=== PATIENT | female | born 1965 | race Caucasian/White ===

== ENCOUNTER 2017-05-30 07:49 | Inpatient (IN) ==
--- NOTE | 2017-05-29 15:40 | Discharge Summary ---
<Cathy Morris E - Last Filed: 05/29/17 15:38> Date of Encounter: 05/29/17 - Discharge Diagnosis (1) Arthritis of left knee Priority: Primary Status: Chronic (2) Diastolic congestive heart failure Priority: Secondary Status: Chronic Qualifiers: Congestive heart failure chronicity: unspecified congestive heart failure chronicity Qualified Code(s): I50.30 - Unspecified diastolic (congestive) heart failure (3) Hypertension Priority: Secondary Status: Chronic Qualifiers: Hypertension type: unspecified Qualified Code(s): I10 - Essential (primary ) hypertension (4) Hyperlipidemia Priority: Secondary Status: Chronic Qualifiers: Hyperlipidemia type: unspecified Qualified Code(s): E78.5 - Hyperlipidemia , unspecified (5) COPD (chronic obstructive pulmonary disease) Priority: Secondary Status: Chronic Qualifiers: COPD type: unspecified COPD Qualified Code(s): J44.9 - Chronic obstructive pulmonary disease, unspecified (6) REMBERTO on CPAP Priority: Secondary Status: Chronic (7) Smoking Priority: Secondary Status: Chronic (8) Chronic pain Priority: Secondary Status: Chronic Comments: Patient to continue chronic Percocet for pain as directed by the prescriber of that medication. Qualifiers: Chronic pain type: chronic pain syndrome Qualified Code(s): G89.4 - Chronic pain syndrome (9) BMI 60.0-69.9, adult Priority: Secondary Status: Chronic - Discharge Medications Prescriptions: OxyCODONE/APAP 10/325 [Percocet 10/325 MG] 1 each PO Q6HR PRN #40 tablet PRN Reason: Pain Home Medications: Albuterol Neb [Proventil Neb] 2.5 mg IH Q4H PRN 09/23/16 [History] Albuterol Sulfate [Ventolin Hfa] 2 puff IH Q4H PRN 09/23/16 [History] Furosemide [Lasix] 80 mg PO DAILY 09/23/16 [History] Multivitamin [Multivitamins] 1 each PO DAILY 09/23/16 [History] Naproxen [Naprosyn] 500 mg PO BID PRN 09/23/16 [History] Aspirin Enteric Coated [Aspirin EC] 325 mg PO DAILY #21 tablet. 05/29/17 [Rx] Cholecalciferol (D-3) [Vitamin D] 1,000 unit PO DAILY 05/30/17 [History] Fluticasone/Vilanterol [Breo Ellipta 100-25 Mcg INH] 1 each IH DAILY 05/30/17 [ History] Loratadine [Allergy Relief] 10 mg PO DAILY PRN 05/30/17 [History] OxyCODONE/APAP 10/325 [Percocet 10/325 MG] 1 tab PO TID PRN 05/30/17 [History] Potassium Chloride 20 meq PO DAILY 05/30/17 [History] OxyCODONE/APAP 10/325 [Percocet 10/325 MG] 1 each PO Q6HR PRN #40 tablet [Rx] Allergies/Adverse Reactions: Allergies No Known Allergies Allergy (Verified 05/30/17 13:04) Primary care physician: Mariam Kumar - Patient Status Disposition: Transfer Inpatient Rehab Fac Condition: Good - Discharge Instructions Follow Up With: Mariam Kumar MD [Primary Care Provider] - Additional Instructions: Discharge Instructions: Total Knee Replacement Please call [facility] ([phone]), your Primary Care Physician, or report to the Emergency Room if you have any of the following symptoms: Nausea, vomiting, fever greater that 101.5, swelling, chest pain, shortness of breath, increased pain/redness/drainage/odor for your incision site, numbness/ tingling, or any other concerning symptoms. ACTIVITY:Weight-bearing as tolerated. You may progress off support (crutches or walker) as tolerated. NO knee motion, immobilizer at all times. MEDICATIONS: Upon discharge resume your home medications. Take all the medications as prescribed. Take a stool softener if taking narcotic pain medications. Stool softeners are only effective if you drink enough fluids. Drink 6-8 glass of water or fluids a day, unless this is not allowed for another health problem. Despite using stool softeners, if you haven't had a bowel movement in 3 days, please switch to a gentle laxative. Gentle laxatives are sold over the counter. You should have a bowel movement within 24 hours, if not call the office. You will be discharged from the hospital with a prescription for pain medication. You are encouraged to decrease the use of narcotic pain medication as tolerated. Should you require a refill, please call the office. [facility] prescribes narcotic pain medication for only 4-6 weeks after surgery. If you require pain medication beyond this time period, you may be referred to your Primary Care Physician or to the Pain Clinic for further evaluation. Plan ahead for refills on pain medication as many narcotics either need to be picked up at the office or mailed. It is best to call 48-72 hours in advance of needing a prescription refill so you don't run out of medication. To help control the post-operative pain, you may take NSAIDs (Aleve,Advil, Motrin, Ibuprofen, Naprosyn) or Tylenol as prescribed on the bottle in addition to the pain medication. ANTICOAGULATION (blood thinners): Continue your Aspirin, Lovenox or Coumadin as prescribed to help prevent a blood clot in the leg or in the lungs. As long as your incision remains dry and you tolerate the NSAIDs (Aleve, Advil, Motrin, ibuprofen, naprosyn), it is OK to use the NSAIDS while you are taking your anticoagulation medication. Should your incision start to drain, stop the NSAID and contact our office. Common symptoms of blood clot in the legs include: localized pain, swelling, calf tenderness, redness or discoloration of the skin. Blood clot in the lung symptoms include: shortness of breath, rapid pulse, sweating, and chest pain that worsens with deep breathing, coughing up blood, lightheadedness, feelings of anxiety. If you experience any of these symptoms notify your physician immediately, go to the emergency room, or if having trouble breathing, call 911. WOUND CARE: Leave the dressing on for 7 to 10days. You may change the dressing if it becomes saturated greater than 50%. Do not get the dressing wet at anytime. Wash your hands with antibacterial soap, rinse and dry prior to any wound care. If you have orin the visiting nurse or rehab facility can remove the stapes 10-14 days after surgery and place steri-strips across the wound. Leave the steri-strips in place until they fall off on their won. You may let water from the shower run on top of the steri-strips. If you do not have a visiting nurse or rehab facility, you will need to return to the office at 10-14 days for the orin to be removed. If you have itching or redness around the dressing call the office. FOLLOW-UP: Please follow up with your surgeon in the orthopedic clinic in 4 weeks from the day of surgery. If you have orin that need to be removed, you will need to come back to the office in 10-14 days from the day of surgery. - Hospital Course Hospital course: Ms. Hansen is a 52 year old female - Time Spent with Patient Total time spent providing and/or coordinating discharge services: - VTE Documentation of Mechanical Device: Venous foot pump, device <Sneha Hooper - Last Filed: 05/31/17 13:05> Date of Encounter: 05/31/17 - Discharge Diagnosis (1) Status post total knee replacement, left Priority: Primary Status: Acute Comments: No knee ROM, stay in knee immobilizer. No CPM. WBAT. Labs on day of discharge: Labs from last 24 hours 05/31/17 05/31/17 06:10 06:10 Hgb 9.9 L D Hct 31.7 L Sodium 138 Potassium 4.1 Chloride 102 Carbon Dioxide 30 H BUN 16 Creatinine 0.80 Est GFR ( Amer) > 60 Est GFR (Non-Af Amer) > 60 BUN/Creatinine Ratio 20 Glucose 118 H Calculated Osmolality 288 Calcium 9.1 - Impressions ITS Impressions Knee X-Ray 05/30/17 01:00 IMPRESSION: Total knee arthropasty without acute hardware complication. D/ / Sebastian Luo MD / Sebastian Lou MD Interpreting Provider: Sebastian Luo MD Date of admission: 05/30/17 12:57 Primary care physician: Mariam Kumar Consults: 05/30/17 12:57 Consult to Occupational Therapy [CONS] Routine Comment: Evaluate, develop and implement POC Reason for Consult: post knee surgery Consult to Orthopedic Navigator [CONS] [CONS] Routine Consult to Physical Therapy [CONS] Routine Comment: Evaluate, develop and impliment POC Reason for Consult: - No Knee ROM until incision heals; WBAT - post knee surgery Consult to Rayon Tester [CONS] Routine Reason for SW Consult: post op joint replacement RT Post Op Consult [CONS] Routine - Hospital Course Hospital course: Ms. Hansen is a 52 year old female - Time Spent with Patient Total time spent providing and/or coordinating discharge services: <Lukas Mcgowan - Last Filed: 06/02/17 15:06> Date of Encounter: 06/02/17 Time of Encounter: 15:06 - Discharge Diagnosis (1) COPD, moderate Priority: Secondary Status: Chronic (2) REMBERTO treated with BiPAP Priority: Secondary Status: Chronic (3) Morbid obesity Priority: Secondary Status: Chronic (4) Umbilical hernia, incarcerated Priority: Secondary Status: Chronic (5) Arthritis of left knee Priority: Primary Status: Chronic (6) Diastolic congestive heart failure Priority: Secondary Status: Chronic Qualifiers: Congestive heart failure chronicity: unspecified congestive heart failure chronicity Qualified Code(s): I50.30 - Unspecified diastolic (congestive) heart failure (7) Hypertension Priority: Secondary Status: Chronic Qualifiers: Hypertension type: unspecified Qualified Code(s): I10 - Essential (primary ) hypertension (8) Hyperlipidemia Priority: Secondary Status: Chronic Qualifiers: Hyperlipidemia type: unspecified Qualified Code(s): E78.5 - Hyperlipidemia , unspecified (9) COPD (chronic obstructive pulmonary disease) Priority: Secondary Status: Chronic Qualifiers: COPD type: unspecified COPD Qualified Code(s): J44.9 - Chronic obstructive pulmonary disease, unspecified (10) REMBERTO on CPAP Priority: Secondary Status: Chronic (11) Smoking Priority: Secondary Status: Chronic (12) Chronic pain Priority: Secondary Status: Chronic Qualifiers: Chronic pain type: chronic pain syndrome Qualified Code(s): G89.4 - Chronic pain syndrome (13) Status post total left knee replacement Priority: Primary Status: Acute (14) Acute blood loss anemia Priority: Primary Status: Acute (15) Morbid obesity with BMI of 70 and over, adult Priority: Secondary Status: Chronic Primary care physician: Mariam Kumar - Patient Status Functional capacity at discharge: uses cane/walker Overall status at discharge: patient is back to baseline - Hospital Course Hospital course: Ms. Hansen is a 52 year old female Status post left total knee replacement. Patient had some problems with urination and difficulty getting up to urinate wanted a [place] which was refused due to risk of infection. Otherwise did well see them by physical therapy prescription in a brace knee locked out straight to allow for soft tissue healing. Patient somewhat weak discharged on aspirin for DVT prophylaxis. - Time Spent with Patient Total time spent providing and/or coordinating discharge services:
--- NOTE | 2017-05-29 15:44 | Physician Discharge Referral ---
ExtendedCare Referral Info Transfer To: [facility] Provider in Charge: Dr. Lukas Mcgowan Institutional Level of Care: Skilled - Diagnosis (1) Status post total left knee replacement Priority: Primary Status: Acute (2) Arthritis of left knee Priority: Primary Status: Chronic (3) Diastolic congestive heart failure Priority: Secondary Status: Chronic (4) Hypertension Priority: Secondary Status: Chronic (5) Hyperlipidemia Priority: Secondary Status: Chronic (6) COPD (chronic obstructive pulmonary disease) Priority: Secondary Status: Chronic (7) REMBERTO on CPAP Priority: Secondary Status: Chronic (8) Smoking Priority: Secondary Status: Chronic (9) Chronic pain Priority: Secondary Status: Chronic (10) BMI 60.0-69.9, adult Priority: Secondary Status: Chronic Expected Duration of Placement: <30 days Prognosis: Good Aware of Diagnosis: Patient Aware of Prognosis: Patient - Transfer Medications Prescriptions: Aspirin Enteric Coated [Aspirin EC] 325 mg PO DAILY #21 tablet.dr Escobar Medications: Potassium Chloride [Klor-Con Sprinkle] 10 meq PO QAM 11/03/15 [History] Albuterol Neb [Proventil Neb] 2.5 mg IH Q4H PRN 09/23/16 [History] Albuterol Sulfate [Ventolin Hfa] 2 puff IH Q4H PRN 09/23/16 [History] Budesonide/Formoterol 160/4.5 [Symbicort 160/4.5] 2 puff IH BIDR 09/23/16 [ History] Cholecalciferol (Vitamin D3) [Vitamin D3] 50,000 unit PO MO 09/23/16 [History] Furosemide [Lasix] 80 mg PO DAILY 09/23/16 [History] Guaifenesin [Mucinex] 600 mg PO BID PRN 09/23/16 [History] Multivitamin [Multivitamins] 1 each PO DAILY 09/23/16 [History] Naproxen [Naprosyn] 500 mg PO BID PRN 09/23/16 [History] traMADol [Ultram] 50 mg PO Q6H PRN 09/23/16 [History] OxyCODONE/APAP 5/325 [Percocet 5/325 MG] 1 each PO Q4HR PRN #24 tab 09/24/16 [Rx ] Aspirin Enteric Coated [Aspirin EC] 325 mg PO DAILY #21 tablet. 05/29/17 [Rx] Allergies/Adverse Reactions: Allergies No Known Allergies Allergy (Verified 09/23/16 12:23) - Respiratory Orders Smoking Cessation: Smoking cessation has been advised. For more information, call the [place] Tobacco Quit Line at 9-348-UHVV-NOW. - Ancillary Orders May use pressure relief devices daily prn, May go on LENARD w/family/respon republican w /meds at nurse discretion PRN, May consult with Dentist, Checker/Stocker, Cost Estimating Engineer PRN - Mobility Orders Chair, Ambulate (walker) - Rehabiliation Orders Rehab Potential: Good Rehab Orders: ROM Exercises, Evaluation for Physical Therapy, Evaluation for Occupational Therapy Other: Total Knee replacement Precautions x 6 weeks Apply cold therapy wrap 3-6x/day for 20 minutes at a time. Encourage ambulation throughout the day and incentive spirometer 10x/hour. Elevate affected extremity above heart as tolerated. Brace: Wear knee immobilizer at night x 2 weeks. - Treatments Skin tear care topically daily PRN per policy List/Other: Opsite placed. Keep dressing intact until first follow up appointment. If > 50% saturated, notify office, remove dressing and place appropriate dressing back in place. Dressing is water resistant, not water-proof. OK to shower, but do not get dressing wet. - Diet Orders Regular CERTIFICATION: I certify that the transfer of the above named patient to an Extended Care Facility is necessary for the continuing treatment of the diagnosis listed. The above information is true and accurate reflection of patient's current condition. Confidential - Redisclosure prohibited without a patient's written consent.
[2017-05-30] MEDS ORDERED: Albuterol 2.5 MG/3 ML NEBULIZER IH ONE (08:07)
[2017-05-30] MEDS ORDERED: CeFAZolin Pre 3,000 MG/100 ML 3,000 MG/100 ML BAG IVPB ONE (08:07)
[2017-05-30] MEDS ORDERED: Lidocaine -MPF 1% 2 ML VIAL ID ONE (08:07)
[2017-05-30] MEDS ORDERED: Albuterol 2.5 MG/3 ML NEBULIZER ONE (08:10)
[2017-05-30] MEDS ORDERED: Ringers Solution, Lactated 1,000 ML IVC SCH (08:15)
[2017-05-30] MEDS ORDERED: *HR* Propofol 200 MG/20 ML VIAL IVP ONE ×2 (08:30→10:07)
[2017-05-30] MEDS ORDERED: *HR* Midazolam HCl 2 MG/2 ML VIAL ONE (08:30)
[2017-05-30] MEDS ORDERED: *HR* FentaNYL (PF) 100 MCG/2 ML VIAL ONE (08:30)
[2017-05-30] MEDS ORDERED: Ondansetron 4 MG/2 ML VIAL ONE (08:31)
[2017-05-30] MEDS ORDERED: Lidocaine -MPF 2% 2 ML VIAL ONE ×2 (08:31→11:16)
[2017-05-30] MEDS ORDERED: Dexamethasone 4 MG/ML VIAL ONE (08:31)
--- NOTE | 2017-05-30 08:31 | History & Physical Report ---
Date of Encounter: 05/30/17 Time of Encounter: 08:30 24 Hour HP Update - Instructions Instructions: If the History and Physical is less than 30 days old and was completed prior to A.M. admission and or procedure and has NOT been updated on calendar day of procedure please complete this update prior to performing procedure. - Update Patient reports changes in Medical Condition: No Changes in examination, assessment, or condition: No Changes in Medication: No Preop tests/diagnostics Reviewed: Yes Surgery Remains Indicated: Yes Consent for Planned Operative Procedure(s) Verified: Yes - Pre-Operative Checklist Preoperative Checklist Indicated: No Prophylactic Antibiotic Ordered: Yes Is VTE Prophylaxis Indicated?: Yes
[2017-05-30] MEDS ORDERED: Vancomycin 2,000 MG in D5% in Water 250 ML IVPB ONE (08:47)
[2017-05-30] MEDS ORDERED: D10 IVPB ONE (09:00)
[2017-05-30] MEDS ORDERED: VANCOMYCIN IVPB ONE (09:00)
[2017-05-30] MEDS ORDERED: WATER IVPB ONE (09:00)
--- NOTE | 2017-05-30 09:00 | Anesthesia Evaluation PreOp ---
Date of Encounter: 05/30/17 Time of Encounter: 08:54 - Past History Planned Operation: Left Total Knee Arthroplasty Cardiac History: CHF Pulmonary History: Former smoker (quit 02/14/2016, smoked for 30+ years), COPD, REMBERTO Dx (uses bipap) INSTRUMENT INSPECTOR History: Denies Any Significant HX Other Medical History: Other (obesity BMI=69.9) Anesthesia History: No Prior Anesthetic Complications, Past Anesthesia Alcohol Use: none Drug use: none Medications and Allergies Potassium Chloride [Klor-Con Sprinkle] 10 meq PO QAM 11/03/15 [History] Albuterol Neb [Proventil Neb] 2.5 mg IH Q4H PRN 09/23/16 [History] Albuterol Sulfate [Ventolin Hfa] 2 puff IH Q4H PRN 09/23/16 [History] Budesonide/Formoterol 160/4.5 [Symbicort 160/4.5] 2 puff IH BIDR 09/23/16 [ History] Cholecalciferol (Vitamin D3) [Vitamin D3] 50,000 unit PO MO 09/23/16 [History] Furosemide [Lasix] 80 mg PO DAILY 09/23/16 [History] Guaifenesin [Mucinex] 600 mg PO BID PRN 09/23/16 [History] Multivitamin [Multivitamins] 1 each PO DAILY 09/23/16 [History] Naproxen [Naprosyn] 500 mg PO BID PRN 09/23/16 [History] traMADol [Ultram] 50 mg PO Q6H PRN 09/23/16 [History] OxyCODONE/APAP 5/325 [Percocet 5/325 MG] 1 each PO Q4HR PRN #24 tab 09/24/16 [Rx ] Aspirin Enteric Coated [Aspirin EC] 325 mg PO DAILY #21 tablet. 05/29/17 [Rx] Allergies No Known Allergies Allergy (Verified 09/23/16 12:23) - Meds/Allergy Pre-op Review Medications Reviewed: Yes Allergies Reviewed: Yes Beta Blockers on Current Med List: No Anesthesia Results - Labs Laboratory Tests 05/25/17 05/25/17 05/25/17 10:05 10:05 10:05 WBC 7.0 Hgb 13.0 Hct 42.7 Plt Count 324 PT 11.6 INR 1.1 APTT 29.8 Sodium 140 Potassium 4.0 BUN 13 Creatinine 0.71 - Imaging EKG: report reviewed (11/03/2015 ST, low QRS voltage in precordial leads) Additional studies: 09/14/2016 Stress Echo appropriate increase in LVEF with stress definity was used to enhance endocardial border pharmacologic ECG is nondiagnostic for ischemia baseline ECG demonstrates NSR with nonspecific ST findings Anesthesia Exam O2 Sat Height 1.63 m Height 1.63 m Height 1.63 m Weight 184.612 kg Weight 184.612 kg Weight 184.612 kg O2 Sat by Pulse Oximetry 100 Vital Signs Temp Pulse Resp BP Pulse Ox 98.1 F 91 18 134/81 100 05/30/17 08:31 05/30/17 08:31 05/30/17 08:31 05/30/17 08:31 05/30/17 08:31 Height: 5'4'' Weight: 407 lbs NPO (# of Hours): 8 Pain Scale: 8 (left knee) Pain Scale Used: Numeric (1 - 10) - HEENT Pupil (Motor): EOMI Mallampati: II Teeth: Normal (has 7 lower teeth), Missing Oral Opening: Greater than 3 - INSTRUMENT INSPECTOR LOC: Oriented INSTRUMENT INSPECTOR Motor: Normal RUE, Normal LUE, Normal RLE, Normal LLE, Normal Face INSTRUMENT INSPECTOR Sensory: Normal: RUE, LUE, RLE, LLE, Face - Cardiac Rhythm: Regular Murmur: None - Pulmonary Breath Sounds: bilateral Clear Respiratory Effort: Symmetrical Anesthesia Assess/Plan ASA Score: 3 Modified Adams Scale for Level of Consciousness: Cooperative, oriented, and tranquil Anesthetic Plan: General, Regional Monitoring Plan: Standard Monitors Recovery Plan: PACU
[2017-05-30] MEDS ORDERED: ROPIVACAINE HCL/PF 0.5% 30 ML VIAL ONE (09:20)
[2017-05-30] MEDS ORDERED: Bupivacaine/Clonidine Syringe 1 EACH SYRINGE ONE (09:20)
[2017-05-30] MEDS ORDERED: *HR* Morphine 2 MG/ML SYRINGE IVP PRN (09:26)
[2017-05-30] MEDS ORDERED: Ondansetron 4 MG/2 ML VIAL IVP ONE (09:26)
[2017-05-30] MEDS ORDERED: *HR* Labetalol 20 MG/4 ML SYRINGE IVP PRN (09:26)
[2017-05-30] MEDS ORDERED: Dexamethasone 4 MG/ML VIAL IVP ONE (09:26)
[2017-05-30] MEDS ORDERED: *HR* HYDROmorphone (PF) 1 MG/ML SYRINGE IVP PRN (09:26)
[2017-05-30] MEDS ORDERED: *HR* Succinylcholine 200 MG/10 ML VIAL IVP ONE (09:32)
[2017-05-30] MEDS ORDERED: Lidocaine -MPF 4% 5 ML AMPUL ONE (09:32)
--- NOTE | 2017-05-30 09:59 | Anesthesia Procedures ---
Date of Encounter: 05/30/17 Time of Encounter: 09:39 Procedures: Anesthesia - Nerve Block Procedure Date: 05/30/17 Time: 09:39 Surgical Procedure: left knee total Checklist: Correct Patient Identifier, Correct procedure, History checked Correct side: Left Monitor Applied: EKG, BP, Pulse Oximetry Supplemental Oxygen via Nasal Cannula (L/min): 2 Sedation: Versed (mg): 2 Indication: Post Op Analgesia Pre-op Neuro Deficits: Yes Block Type: Femoral, Other (ipack) Catheter placed: No Sterile Technique: Yes Ultrasound used: Yes Anatomy identified: Yes Visual spread of Local: Yes Neuro Stimulation: Yes Nerve Stimulator Range: 0.2 - 0.4 mA Blood on Needle Aspiration: No Smooth Injection of Local: Yes Pain with Injection of Local: No Prep: Chlorhexadine Needle: 22 x 50 mm Stimuplex Local: 0.25% Bupivicaine w/Clonidine 20 mcg/cc (20ml ), Ropivacaine (30ml 0.5) Volume (cc): 50 Number of Attempts: 1 Complications: None/effective block Vitals: vss though out, block per request
[2017-05-30] MEDS ORDERED: *HR* Phenylephrine 10 MG/ML VIAL ONE (10:27)
[2017-05-30] MEDS ORDERED: *HR* Morphine 10 MG/ML VIAL ONE (10:54)
[2017-05-30] MEDS ORDERED: Ketorolac 30 MG/ML VIAL ONE (10:58)
--- NOTE | 2017-05-30 11:06 | Orthopedic Operative Note ---
Date of procedure: 05/30/17 Pre-op diagnosis: Left knee arthritis Post-op diagnosis: same Procedure: Procedure: Left Total knee replacement Estimated blood loss: 400 cc Hardware: Metal and polyethylene replacement. Arthrex Femur: 5 Tibia: 5, 14 x 50 stem PS insert: 11 Patella: 34 Exam Under anesthesia: Full flexion and extension no instability Procedural Notes: Grade 4 arthritic changes medial compartment grade 3 arthritic changes patellofemoral joint. Operative procedure: The patient was brought to the operating room and placed on the operating room table. After general anesthesia was administered the operative knee was examined. Findings were noted in the exam under anesthesia. The operative extremity was prepped and draped in sterile surgical fashion. The patient received IV antibiotics prior to skin incision. A standard midline incision was made centered over the patella. The incision was made through the skin and subcutaneous tissue. A medial parapatellar tendon approach was performed. Care was taken to preserve tissue along the medial aspect of the patella. And to protect the patella tendon. The deep MCL was released off the medial tibia. The infra patella fat pad was excised. Knee was brought into flexion. Patient noted to have grade 4 changes medial compartment and grade 3 changes patellofemoral joint. The entry hole was made for the intramedullary femoral guide. The guide was seated in 6 degrees of valgus. Anterior cut was made followed by the distal cut. The ACL the PCL the medial and the lateral menisci were excised. The tibia was subluxed forward. The entry hole was made for the intramedullary tibial guide. Guide was seated to resect 2 mm off the more abnormal side. The knee was brought into flexion the distal femur was sized to a 5. The femoral guide was seated, the anterior cut was made followed by the posterior condylar cut, followed by the chamfer cuts. The finishing guide was seated the box cut was made and the lug holes were drilled. The tibia was sized to a 5, the tibial tray was seated and prepared with the large drill followed by the fin cutter followed by reaming to 14 x 50. Trial reduction revealed full extension no varus valgus instability with the appropriate 11 PS Ginny. The patella was everted and cut was made at the level of the insertion of the quadriceps and patella tendon. The patella was sized 34 the guide was seated and the lug holes are drilled. Trial reduction revealed excellent patella tracking. All trial components were removed all bony surfaces were irrigated. The tibia was assembled and was cemented first followed by the femur. The 11 PS Ginny was seated and the knee was brought into full extension. The patella was cemented and held in place with the patellar holding clamp. After the cement had hardened, the knee sat for 2 minutes with a Betadine saline solution. The knee was then irrigated out with 2 L of pulse irrigation. The knee was closed by the PA. The extensor mechanism was closed with #2 FiberWire suture and #2 PDS suture. The subcutaneous tissue was then irrigated and closed deep with #1 PDS suture superficially with 0 PDS suture and skin was closed with skin orin. The patient was then placed in a sterile dressing and a postoperative brace extubated and transferred to recovery room in stable condition. Anesthesia: SLAVA Surgeon: Lukas Mcgowan Telecommunication Operator: Cathy Morris Condition: stable Disposition: PACU
[2017-05-30] MEDS ORDERED: Acetaminophen IV 1,000 MG/100 ML INFUS..BTL ONE (12:30)
[2017-05-30] MEDS ORDERED: Acetaminophen IV 1,000 MG/100 ML INFUS..BTL IVPB ONE (12:31)
[2017-05-30] MEDS ORDERED: Ketorolac 30 MG/ML VIAL IVP ONE (12:32)
[2017-05-30 12:37] LABS: Hematocrit 37.4 % (35.3-44.9); Hemoglobin 11.6 g/dL (11.5-15.4)
--- NOTE | 2017-05-30 12:47 | Anesthesia Evaluation Post Op ---
Date of Encounter: 05/30/17 Time of Encounter: 12:46 - Vital Signs Vital Signs: Vital Signs/O2 Sat, Most Current Temp Pulse Resp BP Pulse Ox 98.1 F 74 18 99/54 94 05/30/17 12:27 05/30/17 12:37 05/30/17 12:37 05/30/17 12:27 05/30/17 12:37 - Lungs Lungs: Clear Ascult./Percussion - Airway Airway: Non-obstructed - Cardiovascular Regular Rate - Mental Status Mental Status: Alert & Oriented, Answers Appropriately - Pain Pain Scale: 6 Pain Scale used: Numeric (1 - 10) - Nausea Vomiting Nausea Vomiting: Not Present - Hydration Hydration: NPO, Has not voided - Discharge PostOp Status: Transfer Patient to floor
[2017-05-30] MEDS ORDERED: Sennosides 8.6 MG TABLET PO PRN (12:57)
[2017-05-30] MEDS ORDERED: Ondansetron 4 MG/2 ML VIAL IVP PRN (12:57)
[2017-05-30] MEDS ORDERED: Temazepam 15 MG CAPSULE PO PRN (12:57)
[2017-05-30] MEDS ORDERED: Albuterol 2.5 MG/3 ML NEBULIZER IH PRN (12:57)
[2017-05-30] MEDS ORDERED: MOM Conc 10 ML UD.LIQ PO PRN (12:57)
[2017-05-30] MEDS ORDERED: Loratadine 10 MG TABLET PO PRN (12:57)
[2017-05-30] MEDS ORDERED: *HR* OxyCODONE Immed Rel 5 MG TABLET PO PRN (12:57)
[2017-05-30] MEDS ORDERED: Naloxone 0.4 MG/ML INJ IVP PRN (12:57)
[2017-05-30] MEDS: *HR* OxyCODONE Immed Rel 5 MG TABLET PO PRN (14:23)
[2017-05-30] MEDS: Ringers Solution, Lactated 1,000 ML IVC SCH (14:23)
[2017-05-30] MEDS: Budesonide/Formoterol 160/4.5 MDI IH SCH ×2 (14:52→22:35)
[2017-05-30] MEDS: ceFAZolin 3,000 MG in D5% in Water 100 ML IVPB SCH ×2 (15:29→23:55)
[2017-05-30] MEDS: *HR* Enoxaparin 30 MG/0.3 ML SYRINGE SQ SCH (17:19)
[2017-05-30] MEDS ORDERED: *HR* Enoxaparin 30 MG/0.3 ML SYRINGE SQ SCH (18:00)
[2017-05-30] MEDS: *HR* HYDROmorphone (PF) 1 MG/ML SYRINGE IVP PRN (20:02)
[2017-05-31] MEDS: *HR* HYDROmorphone (PF) 1 MG/ML SYRINGE IVP PRN (04:07)
[2017-05-31] MEDS: Ringers Solution, Lactated 1,000 ML IVC SCH (04:34)
[2017-05-31] MEDS: *HR* Enoxaparin 30 MG/0.3 ML SYRINGE SQ SCH ×2 (05:19→16:38)
--- NOTE | 2017-05-31 06:48 | Orthopedics Progress Note ---
Date of Encounter: 05/31/17 Time of Encounter: 06:48 - Assessment and Plan (1) COPD, moderate Current Visit: No Status: Chronic (2) REMBERTO treated with BiPAP Current Visit: No Status: Chronic (3) Morbid obesity Current Visit: No Status: Chronic (4) Umbilical hernia, incarcerated Current Visit: No Status: Chronic (5) Arthritis of left knee Current Visit: Yes Status: Chronic (6) Diastolic congestive heart failure Current Visit: Yes Status: Chronic Qualifiers: Congestive heart failure chronicity: unspecified congestive heart failure chronicity Qualified Code(s): I50.30 - Unspecified diastolic (congestive) heart failure (7) Hypertension Current Visit: Yes Status: Chronic Qualifiers: Hypertension type: unspecified Qualified Code(s): I10 - Essential (primary ) hypertension (8) Hyperlipidemia Current Visit: Yes Status: Chronic Qualifiers: Hyperlipidemia type: unspecified Qualified Code(s): E78.5 - Hyperlipidemia , unspecified (9) COPD (chronic obstructive pulmonary disease) Current Visit: Yes Status: Chronic Qualifiers: COPD type: unspecified COPD Qualified Code(s): J44.9 - Chronic obstructive pulmonary disease, unspecified (10) REMBERTO on CPAP Current Visit: Yes Status: Chronic (11) Smoking Current Visit: Yes Status: Chronic (12) Chronic pain Current Visit: Yes Status: Chronic Qualifiers: Chronic pain type: chronic pain syndrome Qualified Code(s): G89.4 - Chronic pain syndrome (13) BMI 60.0-69.9, adult Current Visit: Yes Status: Chronic (14) Status post total left knee replacement Current Visit: Yes Status: Acute Subjective Interval history: Patient was seen this morning doing well without complaints. Afebrile vital signs stable. Operative extremity: Neurovascularly intact Dressing bloody dressing changed today Calves nontender Assessment and plan: Continue with postoperative care Postop hematocrit 37 no knee motion to allow incision to heal Objective Vital signs: Vital Signs Temp Pulse Resp BP Pulse Ox 05/31/17 06:39 98.4 F 64 20 157/68 93 05/31/17 03:55 98.2 F 98 18 123/69 89 05/31/17 00:03 98.4 F 95 18 127/72 92 05/30/17 20:19 98.3 F 92 18 138/80 90 05/30/17 16:05 98.5 F 83 16 163/75 95 05/30/17 15:20 98.2 F 81 16 158/68 97 05/30/17 14:19 98.0 F 81 16 125/69 95 05/30/17 13:35 97.8 F 79 16 131/68 95 05/30/17 13:09 97.6 F 74 15 118/72 96 05/30/17 12:47 98.1 F 79 18 117/64 96 05/30/17 12:37 74 18 94 05/30/17 12:27 98.1 F 78 20 99/54 93 05/30/17 12:17 82 18 110/66 95 05/30/17 12:07 76 18 96/53 92 05/30/17 11:57 98.0 F 87 14 108/64 99 05/30/17 09:56 77 18 116/63 96 05/30/17 09:32 87 16 171/82 94 05/30/17 08:31 98.1 F 91 18 134/81 100 Intake and Output 05/30/17 05/30/17 05/31/17 15:59 23:59 07:59 Intake Total 420 / 420 1100 / 1100 Output Total 400 / 400 Balance -400 / -400 420 / 420 1100 / 1100 Intake: IV Fluids 100 / 100 1100 / 1100 Lactated Ringers 1,000 ML 1000 / 1000 @ 75 mls/hr IVC .[id number] GINNA Rx#:[id number] Ancef 3,000 MG In 100 / 100 100 / 100 Dextrose 5% 100 ML @ 200 mls/hr IVPB Q8HR GINNA Rx#: [id number] Oral 320 / 320 Output: Estimated Blood Loss 400 / 400 Other: Meal Dinner Percent of Meal Consumed 100% # Voids 1 Weight 184.612 kg 189.3 kg Patient Weight 05/31/17 23:59 Weight 189.3 kg - Labs CBC & BMP: 05/30/17 12:23 - VTE Documentation of Mechanical Device: Venous foot pump, device Consult Discharge Plan - Plan Referrals: Mariam Kumar MD [Primary Care Provider] -
[2017-05-31 06:49] LABS: Hematocrit 31.7 % (35.3-44.9)
[2017-05-31 06:50] LABS: Hemoglobin 9.9 g/dL (11.5-15.4)
[2017-05-31 07:06] LABS: BUN/Creatinine Ratio 20 (6-26); Blood Urea Nitrogen 16 mg/dL (7-20); Calcium 9.1 mg/dL (8.6-10.8); Carbon Dioxide 30 mEq/L (19-29); Chloride 102 mEq/L (98-109); Glucose 118 mg/dL (70-99); Osmolality,Calculated 288 (280-300); Potassium 4.1 mEq/L (3.5-4.5); Sodium 138 mEq/L (136-145); eGFR For African Americans > 60 (> 60); eGFR For Non-African Americans > 60 (> 60)
[2017-05-31] MEDS: Budesonide/Formoterol 160/4.5 MDI IH SCH ×2 (08:22→21:51)
[2017-05-31] MEDS: Multivit/Ca/Min/Fe/FA 1 TAB TABLET PO SCH (08:23)
[2017-05-31] MEDS: *HR* OxyCODONE Immed Rel 5 MG TABLET PO PRN ×4 (08:24→22:58)
[2017-05-31] MEDS: Cholecalciferol (D-3) 1,000 UNIT TABLET PO SCH (08:24)
[2017-05-31] MEDS: Furosemide 40 MG TABLET PO SCH ×2 (08:24→08:26)
--- NOTE | 2017-05-31 13:05 | Event Note ---
Date of Encounter: 05/31/17 Time of Encounter: 13:01 PCR - POD#1 Left TKR Patient seen at bedside, doing well. Pain controlled. All questions and concerns addressed. Patient educated on post-operative restrictions and care. Addressed: NO KNEE ROM, NO CPM. Until incision heals. D/C plan: ECF - Percocet 10/325 mg TID - Need RX for ECF
[2017-06-01] MEDS: *HR* OxyCODONE Immed Rel 5 MG TABLET PO PRN ×2 (03:52→11:42)
[2017-06-01 05:25] LABS: Hemoglobin 9.2 g/dL (11.5-15.4)
[2017-06-01 05:37] LABS: BUN/Creatinine Ratio 20 (6-26); Blood Urea Nitrogen 14 mg/dL (7-20); Calcium 8.9 mg/dL (8.6-10.8); Carbon Dioxide 30 mEq/L (19-29); Chloride 103 mEq/L (98-109); Glucose 136 mg/dL (70-99); Osmolality,Calculated 291 (280-300); Potassium 3.8 mEq/L (3.5-4.5); Sodium 139 mEq/L (136-145); eGFR For African Americans > 60 (> 60); eGFR For Non-African Americans > 60 (> 60)
[2017-06-01] MEDS: *HR* Enoxaparin 30 MG/0.3 ML SYRINGE SQ SCH (05:59)
[2017-06-01] MEDS: Budesonide/Formoterol 160/4.5 MDI IH SCH (08:21)
[2017-06-01] MEDS: Multivit/Ca/Min/Fe/FA 1 TAB TABLET PO SCH (09:41)
[2017-06-01] MEDS: Cholecalciferol (D-3) 1,000 UNIT TABLET PO SCH (09:41)
[2017-06-01] MEDS: Furosemide 40 MG TABLET PO SCH (09:42)
--- NOTE | 2017-06-01 09:53 | Orthopedics Progress Note ---
Date of Encounter: 06/01/17 Time of Encounter: 09:52 - Assessment and Plan (1) COPD, moderate Current Visit: No Status: Chronic (2) REMBERTO treated with BiPAP Current Visit: No Status: Chronic (3) Morbid obesity Current Visit: No Status: Chronic (4) Umbilical hernia, incarcerated Current Visit: No Status: Chronic (5) Arthritis of left knee Current Visit: Yes Status: Chronic (6) Diastolic congestive heart failure Current Visit: Yes Status: Chronic Qualifiers: Congestive heart failure chronicity: unspecified congestive heart failure chronicity Qualified Code(s): I50.30 - Unspecified diastolic (congestive) heart failure (7) Hypertension Current Visit: Yes Status: Chronic Qualifiers: Hypertension type: unspecified Qualified Code(s): I10 - Essential (primary ) hypertension (8) Hyperlipidemia Current Visit: Yes Status: Chronic Qualifiers: Hyperlipidemia type: unspecified Qualified Code(s): E78.5 - Hyperlipidemia , unspecified (9) COPD (chronic obstructive pulmonary disease) Current Visit: Yes Status: Chronic Qualifiers: COPD type: unspecified COPD Qualified Code(s): J44.9 - Chronic obstructive pulmonary disease, unspecified (10) REMBERTO on CPAP Current Visit: Yes Status: Chronic (11) Smoking Current Visit: Yes Status: Chronic (12) Chronic pain Current Visit: Yes Status: Chronic Qualifiers: Chronic pain type: chronic pain syndrome Qualified Code(s): G89.4 - Chronic pain syndrome (13) Status post total left knee replacement Current Visit: Yes Status: Acute (14) Acute blood loss anemia Current Visit: Yes Status: Acute (15) Morbid obesity with BMI of 70 and over, adult Current Visit: Yes Status: Chronic Subjective Interval history: Patient was seen this morning doing well without complaints. Afebrile vital signs stable. Operative extremity: Neurovascularly intact Dressing bloody dressing changed today Calves nontender Assessment and plan: Continue with postoperative care Asymptomatic acute blood loss anemia Objective Vital signs: Vital Signs Temp Pulse Resp BP Pulse Ox 06/01/17 06:44 99.5 F 93 18 153/82 93 06/01/17 03:53 98.8 F 94 18 182/73 90 06/01/17 00:24 99.5 F 95 18 142/71 90 05/31/17 21:00 98.4 F 87 17 140/73 90 05/31/17 14:58 99.0 F 90 18 161/72 93 05/31/17 11:07 98.1 F 80 18 145/64 98 Intake and Output 05/31/17 06/01/17 06/01/17 23:59 07:59 15:59 Intake Total 120 / 120 Output Total 1400 / 1400 250 / 250 500 / 500 Balance -1400 / -1400 -250 / -250 -380 / -380 Intake: Oral 120 / 120 Output: Urine 1400 / 1400 250 / 250 500 / 500 Other: Meal Breakfast Percent of Meal Consumed 25% Weight 189.6 kg Patient Weight 06/01/17 23:59 Weight 189.6 kg - Labs CBC & BMP: 06/01/17 04:42 06/01/17 04:42 Labs: Abnormal lab results Hgb 9.2 g/dL (11.5-15.4) L 06/01/17 04:42 Hct 30.0 % (35.3-44.9) L 06/01/17 04:42 Carbon Dioxide 30 mEq/L (19-29) H 06/01/17 04:42 Glucose 136 mg/dL (70-99) H 06/01/17 04:42 - VTE Documentation of Mechanical Device: Venous foot pump, device Consult Discharge Plan - Plan Referrals: Mariam Kumar MD [Primary Care Provider] - Prescriptions: OxyCODONE/APAP 10/325 [Percocet 10/325 MG] 1 each PO Q6HR PRN #40 tablet PRN Reason: Pain
[2017-06-01 11:02] VITALS: BP 180/96
--- NOTE | 2017-06-01 11:28 | Event Note ---
Date of Encounter: 06/01/17 Time of Encounter: 12:35 PCR - POD#1 Left TKR Patient seen at bedside, doing well. Pain controlled. Patient refusing Lasix x 3 to nurses. Discussed with patient her CHF diagnosis and absolute necessity for this medication for her overall health. Patient states that here in hospital having concern re: making to bedside commode - patient states that she will take when she gets to ECF and is "more motivated". All questions and concerns addressed. Patient educated on post-operative restrictions and care. Addressed: NO KNEE ROM, NO CPM. Until incision heals. D/C plan: ECF - Percocet 10/325 mg TID - Need RX for ECF Discussed Lasix with patient, patient states that she is not taking medication here because she cannot get to the bathroom fast enough. Educated the importance of taking Lasix to help with her BP and to prevent fluid retention from CHF. Patient states she will start taking it again when she gets home. Educated use of ice machine- to decrease swelling and help with pain. Discussed no knee ROM- informed she will be in brace for 2-3 weeks. Patient verbalized understanding.
== END 2017-06-01 15:08 | DRG 302 ==
LOC: SAMDAY 07:49 → 3NENU 12:57
PROVIDERS: ADMIT Orthopaedic Surgery; ATTEND Orthopaedic Surgery

== ENCOUNTER 2018-06-16 10:44 | Inpatient (IN) ==
--- NOTE | 2018-06-16 09:44 | Discharge Summary ---
<Lukas Mcgowanh - Last Filed: 06/16/18 11:48> Date of Encounter: 06/16/18 - Discharge Diagnosis (1) COPD, moderate Priority: Secondary Status: Chronic (2) REMBERTO treated with BiPAP Priority: Secondary Status: Chronic (3) Diastolic congestive heart failure Priority: Secondary Status: Chronic Qualifiers: Heart failure chronicity: chronic Qualified Code(s): I50.32 - Chronic diastolic (congestive) heart failure (4) Hypertension Priority: Secondary Status: Chronic Qualifiers: Hypertension type: unspecified Qualified Code(s): I10 - Essential (primary ) hypertension (5) Hyperlipidemia Priority: Secondary Status: Chronic Qualifiers: Hyperlipidemia type: unspecified Qualified Code(s): E78.5 - Hyperlipidemia , unspecified (6) COPD (chronic obstructive pulmonary disease) Priority: Secondary Status: Chronic Qualifiers: COPD type: unspecified COPD Qualified Code(s): J44.9 - Chronic obstructive pulmonary disease, unspecified (7) Smoking Priority: Secondary Status: Chronic (8) Chronic pain Priority: Secondary Status: Chronic Qualifiers: Chronic pain type: other chronic pain Qualified Code(s): G89.29 - Other chronic pain (9) Status post total left knee replacement Priority: Secondary Status: Chronic (10) Arthritis of right knee Priority: Primary Status: Chronic (11) Status post total right knee replacement Priority: Primary Status: Acute (12) Morbid obesity with BMI of 60.0-69.9, adult Priority: Secondary Status: Chronic - Hospital Course Hospital course: Ms. Hansen is a 53 year old female - Time Spent with Patient Total time spent providing and/or coordinating discharge services: - Discharge Medications Home Medications: Albuterol Neb [Proventil Neb] 2.5 mg IH Q4H PRN 09/23/16 [History] Albuterol Sulfate [Ventolin Hfa] 2 puff IH Q4H PRN 09/23/16 [History] Furosemide [Lasix] 80 mg PO DAILY 09/23/16 [History] Multivitamin [Multivitamins] 1 each PO DAILY 09/23/16 [History] Cholecalciferol (D-3) [Vitamin D] 1,000 unit PO DAILY 05/30/17 [History] Fluticasone/Vilanterol [Breo Ellipta 100-25 Mcg INH] 1 each IH DAILY 05/30/17 [ History] Loratadine [Allergy Relief] 10 mg PO DAILY PRN 05/30/17 [History] Potassium Chloride 20 meq PO DAILY 05/30/17 [History] OxyCODONE/APAP 10/325 [Percocet 10/325 MG] 1 each PO Q6HR PRN #40 tablet [Rx] Aspirin Enteric Coated [Aspirin EC] 325 mg PO BID #20 tablet. 06/16/18 [Rx] OxyCODONE Immed Rel [Roxicodone 5 MG] 5 mg PO Q4HR PRN 5 Days #20 tablet [Rx] Docusate [Colace] 100 mg PO BID capsule 06/22/18 [Rx] MOM Conc [MILK OF MAGNESIA conc] 5 ml PO HS PRN ud.liq 06/22/18 [Rx] Ondansetron [Zofran] 4 mg IVP Q6HR PRN vial 06/22/18 [Rx] Allergies/Adverse Reactions: 3 Allergy/AdvReac Type Severity Reaction Status Date / Time tramadol Allergy Chest Pain Verified 06/05/18 13:33 Primary care physician: Mariam Kumar - Patient Status Disposition: Transfer SNF Condition: Good - Discharge Instructions Follow Up With: Mariam Kumar MD [Primary Care Provider] - <Sneha Hooper - Last Filed: 06/22/18 17:37> Orders not resulted at time of discharge: Pending orders 06/22/18 14:59 XR knee RT limited 1-2V [XR] Routine Date of Encounter: 06/22/18 Time of Encounter: 17:18 - Discharge Diagnosis (1) Status post total right knee replacement Status: Acute Comments: Patient seen at bedside, without complaints. A&O x 3 Afebrile, vital signs stable. All Lab Results (24 Hours) 06/22/18 06/22/18 Range/Units 13:46 13:46 Hgb 10.6 L (11.5-15.4) g/dL Hct 33.3 L (35.3-44.9) % Sodium 140 (136-145) mEq/L Potassium 3.7 (3.5-5.1) mEq/L Chloride 106 (98-107) mEq/L Carbon Dioxide 26 (23-29) mEq/L BUN 11 (6-20) mg/dL Creatinine 0.63 (0.60-1.20) mg/dL Est GFR ( Amer) > 60 (> 60) Est GFR (Non-Af Amer) > 60 (> 60) BUN/Creatinine Ratio 17 (6-26) Glucose 154 H (70-105) mg/dL Calculated Osmolality 292 (280-300) Calcium 8.9 (8.6-10.3) mg/dL Vital Signs Temp Pulse Resp BP Pulse Ox 06/22/18 14:28 98.5 F 87 16 144/86 98 06/22/18 10:00 98.5 F 93 16 151/83 96 06/22/18 06:48 98.9 F 87 16 148/78 96 06/22/18 02:11 99.3 F 84 18 141/84 95 06/21/18 20:21 99.6 F 84 18 112/45 94 Intake and Output 06/22/18 06/22/18 06/22/18 07:59 15:59 23:59 Intake Total 360 / 360 Output Total 725 / 725 600 / 600 Balance -365 / -365 -600 / -600 Intake: Oral 360 / 360 Output: Urine 725 / 725 600 / 600 Other: Meal Lunch Percent of Meal Consumed 100% Labs reviewed. H/H - stable, asymptomatic Pain control: adequate Participating in PT. All questions and concerns addressed. Educated on use of incentive spirometer. Encouraged ambulation and proper hydration. Patient educated on post-operative restrictions and post-operative care. Assessment and plan: Continue with postoperative care Discharge plan: ECF, discharge 06/22 or 06/23. (2) Arthritis of right knee Status: Chronic (3) Morbid obesity with BMI of 60.0-69.9, adult Status: Chronic (4) COPD (chronic obstructive pulmonary disease) Status: Chronic Qualifiers: COPD type: unspecified COPD Qualified Code(s): J44.9 - Chronic obstructive pulmonary disease, unspecified (5) Chronic pain Status: Chronic Qualifiers: Chronic pain type: other chronic pain Qualified Code(s): G89.29 - Other chronic pain (6) Diastolic congestive heart failure Status: Chronic Qualifiers: Heart failure chronicity: chronic Qualified Code(s): I50.32 - Chronic diastolic (congestive) heart failure (7) Hyperlipidemia Status: Chronic Qualifiers: Hyperlipidemia type: unspecified Qualified Code(s): E78.5 - Hyperlipidemia , unspecified (8) Hypertension Status: Chronic Qualifiers: Hypertension type: unspecified Qualified Code(s): I10 - Essential (primary ) hypertension (9) REMBERTO treated with BiPAP Status: Chronic (10) Smoking Status: Chronic - Hospital Course Hospital course: Patient seen at bedside, without complaints. A&O x 3. Patient had uneventful postoperative course. Stable for discharge. She has been awaiting placement for ECF. Afebrile, vital signs stable. Labs reviewed. H/H - stable, asymptomatic Pain control: adequate Participating in PT. All questions and concerns addressed. Educated on use of incentive spirometer. Encouraged ambulation and proper hydration. Patient educated on post-operative restrictions and post-operative care. Assessment and plan: Continue with postoperative care Discharge plan: today to [facility] if auth obtained, or tomorrow. - Time Spent with Patient Total time spent providing and/or coordinating discharge services: Date of admission: 06/16/18 15:42 Primary care physician: Mariam Kumar Consults: 06/16/18 15:40 Consult to Occupational Therapy [CONS] Routine Comment: Evaluate, develop and implement POC Reason for Consult: post knee surgery Does patient have active BEDREST order?: No Is patient medically & hemodynamically stable?: Yes Consult to Orthopedic Navigator [CONS] [CONS] Routine Consult to Physical Therapy [CONS] Routine Comment: Evaluate, develop and impliment POC Reason for Consult: post knee surgery Does patient have active BEDREST order?: No Is patient medically & hemodynamically stable?: Yes Consult to Central Service Technician [CONS] Routine Reason for SW Consult: post op joint replacement RT Post Op Consult [CONS] Routine Anticipated date of discharge: 06/23/18 Labs on day of discharge: Labs from last 24 hours 06/22/18 06/22/18 13:46 13:46 Hgb 10.6 L Hct 33.3 L Sodium 140 Potassium 3.7 Chloride 106 Carbon Dioxide 26 BUN 11 Creatinine 0.63 Est GFR ( Amer) > 60 Est GFR (Non-Af Amer) > 60 BUN/Creatinine Ratio 17 Glucose 154 H Calculated Osmolality 292 Calcium 8.9 - Impressions ITS Impressions Knee X-Ray 06/16/18 09:44 IMPRESSION: No acute complication status post right knee arthroplasty. D/ / 06/16/2018 15:11:18 Nicholas Gutierrez MD / bcarter Interpreting Provider: Nicholas Gutierrez MD - Patient Status Functional capacity at discharge: uses cane/walker Overall status at discharge: patient is back to baseline - Diet and Activity Activity: as per physical therapy Diet: advance to your usual diet
[2018-06-16] MEDS ORDERED: Acetaminophen IV 1,000 MG/100 ML INFUS..BTL IVPB ONE (11:15)
[2018-06-16] MEDS ORDERED: Famotidine 20 MG/2 ML VIAL IVP ONE (11:15)
[2018-06-16] MEDS ORDERED: Pregabalin 75 MG CAPSULE PO ONE (11:15)
--- NOTE | 2018-06-16 11:19 | Anesthesia Evaluation PreOp ---
Date of Encounter: 06/16/18 Time of Encounter: 11:16 - Past History Planned Operation: Robotic R-TKR Cardiac History: CHF (chronic diastolic heart failure. 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 Super MO/BMI = 69) Anesthesia History: No Prior Anesthetic Complications, Past Anesthesia (C- section x 2, ORIF/Pinning R-pinky finger, Dental extractions, Incarcerated Hernia repair 2015, L-TKR) Alcohol Use: none Drug use: none Medications and Allergies Albuterol Neb [Proventil Neb] 2.5 mg IH Q4H PRN 09/23/16 [History] Albuterol Sulfate [Ventolin Hfa] 2 puff IH Q4H PRN 09/23/16 [History] Furosemide [Lasix] 80 mg PO DAILY 09/23/16 [History] Multivitamin [Multivitamins] 1 each PO DAILY 09/23/16 [History] Naproxen [Naprosyn] 500 mg PO BID PRN 09/23/16 [History] Aspirin Enteric Coated [Aspirin EC] 325 mg PO DAILY #21 tablet. 05/29/17 [Rx] Cholecalciferol (D-3) [Vitamin D] 1,000 unit PO DAILY 05/30/17 [History] Fluticasone/Vilanterol [Breo Ellipta 100-25 Mcg INH] 1 each IH DAILY 05/30/17 [ History] Loratadine [Allergy Relief] 10 mg PO DAILY PRN 05/30/17 [History] OxyCODONE/APAP 10/325 [Percocet 10/325 MG] 1 tab PO TID PRN 05/30/17 [History] Potassium Chloride 20 meq PO DAILY 05/30/17 [History] OxyCODONE/APAP 10/325 [Percocet 10/325 MG] 1 each PO Q6HR PRN #40 tablet [Rx] Aspirin Enteric Coated [Aspirin EC] 325 mg PO BID #20 tablet. 06/16/18 [Rx] OxyCODONE Immed Rel [Roxicodone 5 MG] 5 mg PO Q4HR PRN 5 Days #20 tablet [Rx] 3 Allergy/AdvReac Type Severity Reaction Status Date / Time tramadol Allergy Chest Pain Verified 06/05/18 13:33 - Meds/Allergy Pre-op Review Medications Reviewed: Yes Allergies Reviewed: Yes Beta Blockers on Current Med List: No Anesthesia Results - Labs Laboratory Tests 01/05/18 06/05/18 06/05/18 10:10 13:55 13:55 WBC 10.7 Hgb 13.1 Hct 42.4 Plt Count 301 PT 11.1 INR 1.0 APTT 32.5 Sodium Potassium Chloride Carbon Dioxide BUN Creatinine Est GFR (Non-Af Amer) Est Mean Plasma Glucose Hemoglobin A1c Calcium 9.5 06/05/18 06/05/18 13:55 13:55 WBC Hgb Hct Plt Count PT INR APTT Sodium 142 Potassium 4.3 Chloride 106 Carbon Dioxide 30 H BUN 12 Creatinine 0.71 Est GFR (Non-Af Amer) > 60 Est Mean Plasma Glucose 126 Hemoglobin A1c 6.0 H Calcium - Imaging EKG: image reviewed (81bm SR w/SA, Minimal ST depression) Additional studies: ECHO 09/2016 - Findings: Stress Echo * Baseline ECG demonstrates NSR with nonspecific ST findings. * Peak ECG demonstrates accentuated baseline abnormal ST findings which is nondiagnostic for ischemia. * The patient demonstrated a normal blood pressure response. * No arrhythmias during exericse or recovery. * No chest pain during stress procedure. * Appropriate increase EF with stress. Study Quality * Technically sub-optimal due to body habitus. Left Ventricle * Definity echo contrast was used. Anesthesia Exam O2 Sat Height 1.65 m Height 1.65 m Weight 187.334 kg Weight 187.334 kg O2 Sat by Pulse Oximetry 92 Vital Signs Temp Pulse Resp BP Pulse Ox 98.2 F 86 18 182/92 92 06/16/18 11:15 06/16/18 11:15 06/16/18 11:15 06/16/18 11:15 06/16/18 11:15 Height: 5'4" Weight: 410# BMI= 69 Pain Scale Used: Numeric (1 - 10) - HEENT Pupil (Motor): Pupils equal, EOMI Mallampati: III Teeth: Missing, Edentulous (upper), Poor dentition Oral Opening: Greater than 3 - FILLER SIFTER HELPER LOC: Oriented [employer] S[employer]TER HELPER Motor: Normal RUE, Normal LUE, Normal RLE, Normal LLE, Normal Face [employer] S[employer]TER HELPER Sensory: Normal: RUE, LUE, RLE, LLE, Face - Cardiac Rhythm: Regular - Pulmonary Breath Sounds: bilateral Clear Respiratory Effort: Symmetrical Anesthesia Assess/Plan ASA Score: 4 (Super MO/BMI = 69, REMBERTO, Hx CHF) Modified [place] Scale for Level of Consciousness: Cooperative, oriented, and tranquil Anesthetic Plan: General, Regional (PT REFUSES/DECLINES NERVE BLOCK FOR THIS SURGERY) Monitoring Plan: Standard Monitors Recovery Plan: PACU Anes Supervising Prov Stmt: Pt seen/evaluated, R&B Discussed questions answered and consent obtained . Ze Deshpande MD
--- NOTE | 2018-06-16 11:48 | History & Physical Report ---
Date of Encounter: 06/16/18 Time of Encounter: 11:48 24 Hour HP Update - Instructions Instructions: If the History and Physical is less than 30 days old and was completed prior to A.M. admission and or procedure and has NOT been updated on calendar day of procedure please complete this update prior to performing procedure. - Update Patient reports changes in Medical Condition: No Changes in examination, assessment, or condition: No Changes in Medication: No Preop tests/diagnostics Reviewed: Yes Surgery Remains Indicated: Yes Consent for Planned Operative Procedure(s) Verified: Yes - Pre-Operative Checklist Preoperative Checklist Indicated: No Prophylactic Antibiotic Ordered: Yes Is VTE Prophylaxis Indicated?: Yes
[2018-06-16] MEDS ORDERED: Ondansetron 4 MG/2 ML VIAL ONE (11:59)
[2018-06-16] MEDS ORDERED: Dexamethasone 4 MG/ML VIAL ONE (11:59)
[2018-06-16] MEDS ORDERED: Lidocaine -MPF 2% 2 ML VIAL ONE (11:59)
[2018-06-16] MEDS ORDERED: Ethanol\\Acetic Acid\\Na Ace\\Ben 1,000 ML IRRIG.SOLN IR ONE (12:00)
[2018-06-16] MEDS ORDERED: *HR* Propofol 200 MG/20 ML VIAL IVP ONE ×2 (12:00→12:58)
[2018-06-16] MEDS ORDERED: *HR* FentaNYL (PF) 100 MCG/2 ML VIAL ONE ×2 (12:01→14:11)
[2018-06-16] MEDS ORDERED: *HR* Succinylcholine 200 MG/10 ML VIAL IVP ONE (12:02)
[2018-06-16] MEDS ORDERED: Lidocaine -MPF 4% 5 ML AMPUL ONE (12:03)
[2018-06-16] MEDS ORDERED: CeFAZolin Syr 3,000MG/30 ML 3,000 MG/30 ML SYRINGE IVPB ONE (12:09)
[2018-06-16] MEDS ORDERED: Albuterol 2.5 MG/3 ML NEBULIZER IH ONE (12:09)
[2018-06-16] MEDS ORDERED: Ketamine *HR* 500 MG/10 ML MDV ONE (12:13)
[2018-06-16] MEDS ORDERED: Dexmedetomidine HCl 400 MCG/100 ML MLS IVC ONE (12:14)
[2018-06-16] MEDS ORDERED: Ringers Solution, Lactated 1,000 ML IVC SCH (12:15)
[2018-06-16] MEDS ORDERED: *HR* Magnesium Sulfate 1 GM/2 ML VIAL ONE (12:28)
[2018-06-16] MEDS ORDERED: *HR* Remifentanil 2 MG VIAL IVP ONE (12:39)
--- NOTE | 2018-06-16 12:48 | Physician Discharge Referral ---
<Lukas Mcgowan - Last Filed: 06/16/18 14:02> - Diagnosis (1) COPD, moderate Status: Chronic (2) REMBERTO treated with BiPAP Status: Chronic (3) Diastolic congestive heart failure Status: Chronic (4) Hypertension Status: Chronic (5) Hyperlipidemia Status: Chronic (6) COPD (chronic obstructive pulmonary disease) Status: Chronic (7) Smoking Status: Chronic (8) Chronic pain Status: Chronic (9) Status post total left knee replacement Status: Chronic (10) Arthritis of right knee Status: Chronic (11) Status post total right knee replacement Status: Acute (12) Morbid obesity with BMI of 60.0-69.9, adult Status: Chronic - Transfer Medications Home Medications: Albuterol Neb [Proventil Neb] 2.5 mg IH Q4H PRN 09/23/16 [History] Albuterol Sulfate [Ventolin Hfa] 2 puff IH Q4H PRN 09/23/16 [History] Furosemide [Lasix] 80 mg PO DAILY 09/23/16 [History] Multivitamin [Multivitamins] 1 each PO DAILY 09/23/16 [History] Naproxen [Naprosyn] 500 mg PO BID PRN 09/23/16 [History] Aspirin Enteric Coated [Aspirin EC] 325 mg PO DAILY #21 tablet. 05/29/17 [Rx] Cholecalciferol (D-3) [Vitamin D] 1,000 unit PO DAILY 05/30/17 [History] Fluticasone/Vilanterol [Breo Ellipta 100-25 Mcg INH] 1 each IH DAILY 05/30/17 [ History] Loratadine [Allergy Relief] 10 mg PO DAILY PRN 05/30/17 [History] Potassium Chloride 20 meq PO DAILY 05/30/17 [History] OxyCODONE/APAP 10/325 [Percocet 10/325 MG] 1 each PO Q6HR PRN #40 tablet [Rx] Aspirin Enteric Coated [Aspirin EC] 325 mg PO BID #20 tablet. 06/16/18 [Rx] OxyCODONE Immed Rel [Roxicodone 5 MG] 5 mg PO Q4HR PRN 5 Days #20 tablet [Rx] Allergies/Adverse Reactions: 3 Allergy/AdvReac Type Severity Reaction Status Date / Time tramadol Allergy Chest Pain Verified 06/05/18 13:33 - Respiratory Orders Smoking Cessation: Smoking cessation has been advised. For more information, call the [place] [employer] Quit Line at 6-199-GSMD-NOW. CERTIFICATION: I certify that the transfer of the above named patient to an Extended Care Facility is necessary for the continuing treatment of the diagnosis listed. The above information is true and accurate reflection of patient's current condition. Confidential - Redisclosure prohibited without a patient's written consent. <Cathy Morris E - Last Filed: 06/16/18 21:35> ExtendedCare Referral Info Transfer To: [facility] Provider in Charge: Dr. Lukas Mcgowan Provider in Charge after Transfer: PCP - Diagnosis (1) Status post total right knee replacement Priority: Primary Status: Acute (2) Arthritis of right knee Priority: Primary Status: Chronic (3) COPD (chronic obstructive pulmonary disease) Priority: Secondary Status: Chronic (4) Chronic pain Priority: Secondary Status: Chronic (5) Diastolic congestive heart failure Priority: Secondary Status: Chronic (6) Hyperlipidemia Priority: Secondary Status: Chronic (7) Hypertension Priority: Secondary Status: Chronic (8) Morbid obesity Priority: Secondary Status: Chronic (9) REMBERTO on CPAP Priority: Secondary Status: Chronic (10) Smoking Priority: Secondary Status: Chronic (11) Status post total left knee replacement Priority: Secondary Status: Chronic Expected Duration of Placement: less than 30 days Prognosis: Good Aware of Diagnosis: Patient Aware of Prognosis: Patient - Respiratory Orders Smoking Cessation: Smoking cessation has been advised. For more information, call the [employer] Quit Line at 6-188-GJGY-NOW. - Ancillary Orders May use pressure relief devices daily prn, May go on LENARD w/family/respon democrat w /meds at nurse discretion PRN, May consult with Dentist, Rn Midwife, Student Assistance Counselor PRN - Mobility Orders Chair, Ambulate - Rehabiliation Orders Rehab Potential: Good Rehab Orders: Evaluation for Physical Therapy, Evaluation for Occupational Therapy Other: Total Knee replacement Precautions x 6 weeks Apply cold therapy wrap 3-6x/day for 20 minutes at a time. Encourage ambulation throughout the day and incentive spirometer 10x/hour. Elevate affected extremity above heart as tolerated. Brace: Wear knee immobilizer at night x 2 weeks. - Treatments Skin tear care topically daily PRN per policy List/Other: Opsite placed. Keep dressing intact until first follow up appointment. If greater than 50% saturated, notify office, remove dressing and place appropriate dressing back in place. Leave Zipline and orin intact. Opsite dressing is water resistant, not water-proof. OK to shower, but do not get dressing wet. - Diet Orders Regular CERTIFICATION: I certify that the transfer of the above named patient to an Extended Care Facility is necessary for the continuing treatment of the diagnosis listed. The above information is true and accurate reflection of patient's current condition. Confidential - Redisclosure prohibited without a patient's written consent.
--- NOTE | 2018-06-16 12:48 | Physician Discharge Referral ---
<Cathy Morris E - Last Filed: 06/16/18 12:48> - Respiratory Orders Smoking Cessation: Smoking cessation has been advised. For more information, call the [place] Tobacco Quit Line at 2-320-CYJD-NOW. - Transfer Medications Prescriptions: OxyCODONE Immed Rel [Roxicodone 5 MG] 5 mg PO Q4HR PRN 5 Days #20 tablet PRN Reason: Pain Aspirin Enteric Coated [Aspirin EC] 325 mg PO BID #20 tablet. Home Medications: Albuterol Neb [Proventil Neb] 2.5 mg IH Q4H PRN 09/23/16 [History] Albuterol Sulfate [Ventolin Hfa] 2 puff IH Q4H PRN 09/23/16 [History] Furosemide [Lasix] 80 mg PO DAILY 09/23/16 [History] Multivitamin [Multivitamins] 1 each PO DAILY 09/23/16 [History] Naproxen [Naprosyn] 500 mg PO BID PRN 09/23/16 [History] Aspirin Enteric Coated [Aspirin EC] 325 mg PO DAILY #21 tablet. 05/29/17 [Rx] Cholecalciferol (D-3) [Vitamin D] 1,000 unit PO DAILY 05/30/17 [History] Fluticasone/Vilanterol [Breo Ellipta 100-25 Mcg INH] 1 each IH DAILY 05/30/17 [ History] Loratadine [Allergy Relief] 10 mg PO DAILY PRN 05/30/17 [History] Potassium Chloride 20 meq PO DAILY 05/30/17 [History] OxyCODONE/APAP 10/325 [Percocet 10/325 MG] 1 each PO Q6HR PRN #40 tablet [Rx] Aspirin Enteric Coated [Aspirin EC] 325 mg PO BID #20 tablet. 06/16/18 [Rx] OxyCODONE Immed Rel [Roxicodone 5 MG] 5 mg PO Q4HR PRN 5 Days #20 tablet [Rx] Allergies/Adverse Reactions: 3 Allergy/AdvReac Type Severity Reaction Status Date / Time tramadol Allergy Chest Pain Verified 06/05/18 13:33 Certification: Further, I certify that my clinical findings support that this patient is homebound (i.e. absences from home require considerable and taxing effort and are for medical reasons or jainism services or infrequently or short duration when for other reasons) because: Attestation: My signature below is to certify that this patient is under my care and that I, or nurse practitioner, or a physician's legal document assistant working with me, has a face-to -face encounter with this patient. <Lukas Mcgowan - Last Filed: 06/16/18 14:02> - Diagnosis (1) COPD, moderate Status: Chronic (2) REMBERTO treated with BiPAP Status: Chronic (3) Diastolic congestive heart failure Status: Chronic (4) Hypertension Status: Chronic (5) Hyperlipidemia Status: Chronic (6) COPD (chronic obstructive pulmonary disease) Status: Chronic (7) Smoking Status: Chronic (8) Chronic pain Status: Chronic (9) Status post total left knee replacement Status: Chronic (10) Arthritis of right knee Status: Chronic (11) Status post total right knee replacement Status: Acute (12) Morbid obesity with BMI of 60.0-69.9, adult Status: Chronic - Respiratory Orders Smoking Cessation: Smoking cessation has been advised. For more information, call the [place] Tobacco Quit Line at 3-426-HBMJNOW. Certification: Further, I certify that my clinical findings support that this patient is homebound (i.e. absences from home require considerable and taxing effort and are for medical reasons or jainism services or infrequently or short duration when for other reasons) because: Homebound Reason: Patient requires assistance of a person or device to safely leave home Attestation: My signature below is to certify that this patient is under my care and that I, or nurse practitioner, or a physician's legal document assistant working with me, has a face-to -face encounter with this patient.
[2018-06-16] MEDS ORDERED: *HR* PHENYLEPHRINE 1,000 MCG/10 ML SYRINGE IVP ONE (12:56)
[2018-06-16] MEDS ORDERED: EPHEDrine 50 MG/ML VIAL ONE (13:00)
[2018-06-16] MEDS ORDERED: *HR* Meperidine 25 MG/ML SYRINGE IVP PRN (13:10)
[2018-06-16] MEDS ORDERED: *HR* HYDROcodone/Acet 10/325 mg TABLET PO PRN (13:10)
[2018-06-16] MEDS ORDERED: *HR* Labetalol 100 MG/20 ML MDV IVP PRN (13:10)
[2018-06-16] MEDS ORDERED: Ondansetron 4 MG/2 ML VIAL IVP ONE (13:10)
[2018-06-16] MEDS ORDERED: *HR* Promethazine 25 MG/ML VIAL IVP PRN (13:10)
[2018-06-16] MEDS ORDERED: Ketorolac 30 MG/ML VIAL ONE (13:29)
--- NOTE | 2018-06-16 14:04 | Orthopedic Operative Note ---
Date of procedure: 06/16/18 Pre-op diagnosis: Right knee arthritis Post-op diagnosis: same Procedure: Procedure right: robotic-assisted Total knee replacement Estimated blood loss: 500 cc Hardware: Metal and polyethylene replacement. [place] Femur: 4 Tibia: 3 TS insert: 11 Patella: 36 Exam Under anesthesia: 6 degrees flexion contracture 7 degree varus as calculated by the robot full flexion and no instability Procedural Notes: Grade 4 arthritic changes all 3 compartments. Operative procedure: The patient was brought to the operating room and placed on the operating room table. After general anesthesia was administered the operative knee was examined. Findings were noted in the exam under anesthesia. The operative extremity was prepped and draped in sterile surgical fashion. The patient received IV antibiotics prior to skin incision. A standard midline incision was made centered over the patella. The incision was made through the skin and subcutaneous tissue. A medial parapatellar tendon approach was performed. Care was taken to preserve tissue along the medial aspect of the patella. And to protect the patella tendon. The deep MCL was released off the medial tibia. The infra patella fat pad was excised. The patella was everted and cut was made at the level of the insertion of the quadriceps and patella tendon. The patella was sized to a 36 the guide was seated and the lug holes are drilled. Knee was brought into flexion. Patient noted to have rate 4 arthritic changes all 3 compartments. Steinmann pins were placed in the tibia and the femur for the tibial and femoral arrays respectively. Checkpoints were also placed in the tibia and the femur for calculation purposes. The knee including the femur and the tibial registered. Osteophytes, ACL and PCL were excised at this point. Extension and flexion were assessed with a valgus stress components were adjusted on the computer to balance the knee. Femoral cuts were made first with robotic assistance, these included the anterior cut posterior cuts chamfer cuts. Tibial cut was then performed with robotic assistance as well. Bone fragments were removed, as well as the medial and lateral meniscus. The size 4 femoral guide was seated box cut was made lug holes are drilled. The size 3 tibial tray was seated and prepared with the fin cutter. Trial reduction with the 11 TS Ginny revealed extension of 0 degree and 2 degrees varus full flexion. No varus valgus instability. Trial reduction revealed excellent patella tracking. All trial components were removed all bony surfaces were irrigated. The Tibia was seated followed by the femur, The Ginny size 11 was seated and secured patella. Patient had similar findings for motion and stability. The knee was then irrigated out with 2 L of pulse irrigation. The extensor mechanism was closed with #2 FiberWire suture and #2 PDS suture. The subcutaneous tissue was then irrigated and closed deep with #1 PDS suture superficially with 0 PDS suture and skin was closed with zip tie The patient was then placed in a sterile dressing and a postoperative brace extubated and transferred to recovery room in stable condition. Anesthesia: GETA Surgeon: Lukas Mcgowan Was there an assistant prosecuting attorney present: No Estimated blood loss (cc): 500 Condition: stable Disposition: PACU
[2018-06-16] MEDS: *HR* HYDROmorphone (PF) 1 MG/ML SYRINGE IVP PRN ×4 (14:23→14:39)
[2018-06-16 14:43] LABS: Hematocrit 37.9 % (35.3-44.9); Hemoglobin 12.2 g/dL (11.5-15.4)
[2018-06-16] MEDS ORDERED: cloNIDine HCl 0.1 MG TABLET ONE (15:07)
[2018-06-16] MEDS ORDERED: MOM Conc 10 ML UD.LIQ PO PRN (15:40)
[2018-06-16] MEDS ORDERED: traMADol 50 MG TABLET PO PRN (15:40)
[2018-06-16] MEDS ORDERED: Temazepam 15 MG CAPSULE PO PRN (15:40)
[2018-06-16] MEDS ORDERED: Albuterol 2.5 MG/3 ML NEBULIZER IH PRN (15:40)
[2018-06-16] MEDS ORDERED: Sennosides 8.6 MG TABLET PO PRN (15:40)
[2018-06-16] MEDS ORDERED: Naloxone 0.4 MG/ML INJ IVP PRN (15:40)
[2018-06-16] MEDS ORDERED: Ondansetron 4 MG/2 ML VIAL IVP PRN (15:40)
[2018-06-16] MEDS ORDERED: *HR* OxyCODONE/APAP 5/325 TABLET PO PRN (15:40)
[2018-06-16] MEDS ORDERED: Loratadine 10 MG TABLET PO PRN (15:40)
[2018-06-16] MEDS ORDERED: CeFAZolin Syr 3,000MG/30 ML 3,000 MG/30 ML SYRINGE IVPB SCH (16:00)
[2018-06-16] MEDS ORDERED: *HR* Enoxaparin 30 MG/0.3 ML SYRINGE SQ SCH (18:00)
--- NOTE | 2018-06-16 18:07 | Anesthesia Evaluation Post Op ---
Date of Encounter: 06/16/18 Time of Encounter: 15:10 - Vital Signs Vital Signs: Vital Signs Temp Pulse Resp BP Pulse Ox 06/16/18 15:18 97.8 F 74 18 142/80 95 06/16/18 15:08 70 13 168/78 92 06/16/18 14:58 75 15 151/86 96 06/16/18 14:48 97.8 F 71 19 162/77 95 06/16/18 14:38 82 19 160/79 95 06/16/18 14:28 92 18 156/82 96 06/16/18 14:18 98.1 F 96 23 185/99 97 06/16/18 12:10 98.2 F 86 18 182/92 92 06/16/18 11:15 98.2 F 86 18 182/92 92 Intake and Output 06/16/18 06/16/18 06/16/18 07:59 15:59 23:59 Output Total 500 / 500 Balance -500 / -500 Output: Estimated Blood Loss 500 / 500 Other: Weight 187.334 kg Patient Weight 06/16/18 23:59 Weight 187.334 kg - Lungs Lungs: Clear Ascult./Percussion - Airway Airway: Non-obstructed - Cardiovascular Regular Rate - Mental Status Mental Status: Alert & Oriented, Answers Appropriately - Pain Pain Scale: 7 Pain Scale used: Numeric (1 - 10) - Nausea Vomiting Nausea Vomiting: Not Present - Hydration Hydration: Ice chips - Discharge PostOp Status: Transfer Patient to floor Anes Supervising Prov Stmt: Pt seen/evaluated, VSS and pt has met criteria for discharge to floor. - MD Jose Guadalupe
[2018-06-16] MEDS: *HR* Enoxaparin 30 MG/0.3 ML SYRINGE SQ SCH (18:56)
[2018-06-16] MEDS: Ringers Solution, Lactated 1,000 ML IVC SCH (20:16)
[2018-06-16] MEDS: ceFAZolin 3,000 MG in 0.9 % Sodium Chloride 100 ML IVPB SCH (20:18)
[2018-06-16] MEDS: *HR* OxyCODONE Immed Rel 5 MG TABLET PO PRN (20:19)
[2018-06-17 01:50] LABS: Hematocrit 35.4 % (35.3-44.9); Hemoglobin 11.3 g/dL (11.5-15.4)
[2018-06-17 02:22] LABS: BUN/Creatinine Ratio 13 (6-26); Blood Urea Nitrogen 9 mg/dL (6-20); Calcium 8.8 mg/dL (8.6-10.3); Carbon Dioxide 24 mEq/L (23-29); Chloride 101 mEq/L (98-107); Glucose 149 mg/dL (70-105); Osmolality,Calculated 279 (280-300); Potassium 4.2 mEq/L (3.5-5.1); Sodium 134 mEq/L (136-145); eGFR For Non-African Americans > 60 (> 60)
[2018-06-17] MEDS: *HR* Enoxaparin 30 MG/0.3 ML SYRINGE SQ SCH ×2 (05:08→17:54)
[2018-06-17] MEDS: *HR* OxyCODONE Immed Rel 5 MG TABLET PO PRN ×4 (05:08→19:53)
[2018-06-17] MEDS: ceFAZolin 3,000 MG in 0.9 % Sodium Chloride 100 ML IVPB SCH ×2 (05:09→13:21)
[2018-06-17] MEDS: Ringers Solution, Lactated 1,000 ML IVC SCH (07:48)
--- NOTE | 2018-06-17 09:36 | Orthopedics Progress Note ---
Date of Encounter: 06/17/18 Time of Encounter: 09:36 Subjective Interval history: No overnight events. Knee pain is present. Has been up with therapy. Afebrile vital signs stable hemoglobin 11.3 General: No acute distress Knee immobilizer in place operative extremity, dressing is clean dry and intact Distally neurovascularly intact to motor and sensory exam. Continue postoperative management for R TKA Ambulate with therapy. PO pain control. Discharge planning. Objective Vital signs: Vital Signs Temp Pulse Resp BP Pulse Ox 06/17/18 06:25 98.8 F 91 16 134/86 97 06/17/18 04:35 99.0 F 87 16 138/80 96 06/16/18 22:58 97.8 F 65 12 156/78 97 06/16/18 20:13 97.7 F 78 14 176/75 96 06/16/18 18:40 98.8 F 72 18 159/90 98 06/16/18 17:35 98.0 F 68 18 159/80 95 06/16/18 16:46 97.8 F 62 20 161/82 92 06/16/18 16:18 96.5 F L 58 16 157/73 97 06/16/18 15:52 97.5 F L 63 20 160/85 94 06/16/18 15:41 92 06/16/18 15:18 97.8 F 74 18 142/80 95 06/16/18 15:08 70 13 168/78 92 06/16/18 14:58 75 15 151/86 96 06/16/18 14:48 97.8 F 71 19 162/77 95 06/16/18 14:38 82 19 160/79 95 06/16/18 14:28 92 18 156/82 96 06/16/18 14:18 98.1 F 96 23 185/99 97 06/16/18 12:10 98.2 F 86 18 182/92 92 06/16/18 11:15 98.2 F 86 18 182/92 92 Intake and Output 06/16/18 06/17/18 06/17/18 23:59 07:59 15:59 Intake Total 100 / 100 Balance 100 / 100 Intake: IV Fluids 100 / 100 Ancef 3,000 MG In 0.9 % Sodium 100 / 100 Chloride 100 ML @ 200 mls/hr IVPB Q8H [facility] Rx#:[id number] - Labs CBC & BMP: 06/17/18 01:26 06/17/18 01:18 Labs: Abnormal lab results Hgb 11.3 g/dL (11.5-15.4) L 06/17/18 01:26 Sodium 134 mEq/L (136-145) L 06/17/18 01:18 Glucose 149 mg/dL (70-105) H 06/17/18 01:18 Calculated Osmolality 279 (280-300) L 06/17/18 01:18 - VTE Documentation of Mechanical Device: Venous foot pump, device Consult Discharge Plan - Plan Referrals: Mariam Kumar MD [Primary Care Provider] -
[2018-06-17] MEDS: Cholecalciferol (D-3) 1,000 UNIT TABLET PO SCH (09:38)
[2018-06-17] MEDS: Multivit/Ca/Min/Fe/FA 1 TAB TABLET PO SCH (09:38)
[2018-06-17] MEDS: Furosemide 40 MG TABLET PO SCH (09:39)
[2018-06-17] MEDS: Fluticasone/Vilanterol [Breo Ellipta 100-25 Mcg Inh IH SCH (09:42)
[2018-06-18] MEDS: *HR* OxyCODONE Immed Rel 5 MG TABLET PO PRN ×5 (01:38→21:47)
[2018-06-18] MEDS: *HR* Enoxaparin 30 MG/0.3 ML SYRINGE SQ SCH ×2 (06:32→17:52)
[2018-06-18] MEDS: Ringers Solution, Lactated 1,000 ML IVC SCH ×2 (07:15→08:48)
[2018-06-18 07:40] LABS: Hematocrit 33.7 % (35.3-44.9); Hemoglobin 10.7 g/dL (11.5-15.4)
[2018-06-18] MEDS: Cholecalciferol (D-3) 1,000 UNIT TABLET PO SCH (08:46)
[2018-06-18] MEDS: Multivit/Ca/Min/Fe/FA 1 TAB TABLET PO SCH (08:47)
[2018-06-18] MEDS: Furosemide 40 MG TABLET PO SCH (08:47)
[2018-06-18] MEDS: Fluticasone/Vilanterol [Breo Ellipta 100-25 Mcg Inh IH SCH (08:48)
[2018-06-18 08:51] LABS: BUN/Creatinine Ratio 12 (6-26); Blood Urea Nitrogen 7 mg/dL (6-20); Calcium 8.7 mg/dL (8.6-10.3); Carbon Dioxide 28 mEq/L (23-29); Chloride 105 mEq/L (98-107); Glucose 136 mg/dL (70-105); Osmolality,Calculated 288 (280-300); Potassium 3.7 mEq/L (3.5-5.1); Sodium 139 mEq/L (136-145); eGFR For Non-African Americans > 60 (> 60)
--- NOTE | 2018-06-18 10:22 | Orthopedics Progress Note ---
Date of Encounter: 06/18/18 Time of Encounter: 10:21 Subjective Interval history: No overnight events. Resting comfortably. Afebrile vital signs stable hemoglobin 10.7 General: No acute distress Knee immobilizer in place operative extremity, dressing is clean dry and intact Distally neurovascularly intact to motor and sensory exam. Continue postoperative management for R TKA Ambulate with therapy. PO pain control. Discharge planning. Objective Vital signs: Vital Signs Temp Pulse Resp BP Pulse Ox 06/18/18 06:30 98.6 F 101 20 173/79 94 06/18/18 00:03 99.9 F H 87 16 128/60 96 06/17/18 19:45 98.4 F 89 16 177/90 94 Intake and Output 06/17/18 06/18/18 06/18/18 23:59 07:59 15:59 Intake Total 360 / 360 Balance 360 / 360 Intake: Oral 360 / 360 Other: Meal Breakfast Percent of Meal Consumed 50% # Voids 1 # Bowel Movements 0 - Labs CBC & BMP: 06/18/18 07:03 06/18/18 07:03 Labs: Abnormal lab results Hgb 10.7 g/dL (11.5-15.4) L 06/18/18 07:03 Hct 33.7 % (35.3-44.9) L 06/18/18 07:03 Glucose 136 mg/dL (70-105) H 06/18/18 07:03 - VTE Documentation of Mechanical Device: Venous foot pump, device Consult Discharge Plan - Plan Referrals: Mariam Kumar MD [Primary Care Provider] -
[2018-06-19] MEDS: *HR* Enoxaparin 30 MG/0.3 ML SYRINGE SQ SCH ×2 (06:21→17:41)
[2018-06-19] MEDS: *HR* OxyCODONE Immed Rel 5 MG TABLET PO PRN ×4 (06:21→21:46)
--- NOTE | 2018-06-19 09:49 | Orthopedics Progress Note ---
Date of Encounter: 06/19/18 Time of Encounter: 09:00 - Assessment and Plan (1) Status post total right knee replacement Current Visit: Yes Status: Acute (2) Arthritis of right knee Current Visit: Yes Status: Chronic (3) COPD (chronic obstructive pulmonary disease) Current Visit: No Status: Chronic Qualifiers: COPD type: unspecified COPD Qualified Code(s): J44.9 - Chronic obstructive pulmonary disease, unspecified (4) Chronic pain Current Visit: No Status: Chronic Qualifiers: Chronic pain type: other chronic pain Qualified Code(s): G89.29 - Other chronic pain (5) Diastolic congestive heart failure Current Visit: No Status: Chronic Qualifiers: Heart failure chronicity: chronic Qualified Code(s): I50.32 - Chronic diastolic (congestive) heart failure (6) Hyperlipidemia Current Visit: No Status: Chronic Qualifiers: Hyperlipidemia type: unspecified Qualified Code(s): E78.5 - Hyperlipidemia , unspecified (7) Hypertension Current Visit: No Status: Chronic Qualifiers: Hypertension type: unspecified Qualified Code(s): I10 - Essential (primary ) hypertension (8) Morbid obesity Current Visit: No Status: Chronic (9) REMBERTO on CPAP Current Visit: No Status: Chronic (10) Smoking Current Visit: No Status: Chronic (11) Status post total left knee replacement Current Visit: No Status: Chronic Subjective Principal diagnosis: s/p R TKR Interval history: POD#3 Date of procedure: 06/16/18 Pre-op diagnosis: Right knee arthritis Post-op diagnosis: same Procedure: Right robotic-assisted Total knee replacement Dr. Mcgowan No overnight events. States she is having a hard time getting comfortable. States that she is concerned because she was on CPM machine yesterday for 2 hours and is worried about her incision. Patient seen at bedside. Afebrile. Vital signs stable. Labwork and medications reviewed. H/H 10.7/33.7 (06/18/18) Exam: Patient sitting in bed. No acute distress. Alert and oriented x [address] operative extremity - removed revealing incision intact with orin and zipline and honeycomb, dressing is clean and dry. No calf tenderness to palpation bilaterally. Distally neurovascularly intact to motor and sensory exam. All questions and concerns addressed. Educated on use of incentive spirometer, ambulation, and hydration. Patient educated on post-operative restrictions and care. Plan: Continue postoperative management for R TKA Therapy participation: Patient has been refusing - educated patient that must have PT/OT notes to send her to rehab. Patient verbalized understanding and agreed to participate with therapy. Ambulate with therapy. NO CPM. Pain control: PO PRN, ice Knee immobilizer while sleeping x 2 weeks. Discharge plan: [facility] pending auth. Vital Signs Temp Pulse Resp BP Pulse Ox 06/19/18 06:34 98.7 F 106 18 160/73 93 06/19/18 04:15 99.1 F 82 20 146/72 94 06/18/18 23:41 98.9 F 84 20 142/74 93 06/18/18 19:41 99.0 F 104 20 149/75 94 06/18/18 15:32 99.8 F H 93 20 152/72 94 06/18/18 11:40 99 F 93 19 186/79 91 Objective Vital signs: Vital Signs Temp Pulse Resp BP Pulse Ox 06/19/18 06:34 98.7 F 106 18 160/73 93 06/19/18 04:15 99.1 F 82 20 146/72 94 06/18/18 23:41 98.9 F 84 20 142/74 93 06/18/18 19:41 99.0 F 104 20 149/75 94 06/18/18 15:32 99.8 F H 93 20 152/72 94 06/18/18 11:40 99 F 93 19 186/79 91 Intake and Output 06/18/18 06/19/18 06/19/18 23:59 07:59 15:59 Other: Weight 186.8 kg - Labs CBC & BMP: 06/18/18 07:03 06/18/18 07:03 Labs: Abnormal lab results Hgb 10.7 g/dL (11.5-15.4) L 06/18/18 07:03 Hct 33.7 % (35.3-44.9) L 06/18/18 07:03 Glucose 136 mg/dL (70-105) H 06/18/18 07:03 - VTE Documentation of Mechanical Device: Venous foot pump, device Consult Discharge Plan - Plan Referrals: Mariam Kumar MD [Primary Care Provider] -
[2018-06-19] MEDS: Fluticasone/Vilanterol [Breo Ellipta 100-25 Mcg Inh IH SCH (09:56)
[2018-06-19] MEDS: Multivit/Ca/Min/Fe/FA 1 TAB TABLET PO SCH (10:04)
[2018-06-19] MEDS: Cholecalciferol (D-3) 1,000 UNIT TABLET PO SCH (10:04)
[2018-06-19] MEDS: Furosemide 40 MG TABLET PO SCH (10:05)
[2018-06-20] MEDS: *HR* Enoxaparin 30 MG/0.3 ML SYRINGE SQ SCH ×2 (05:27→17:37)
[2018-06-20] MEDS: *HR* OxyCODONE Immed Rel 5 MG TABLET PO PRN ×4 (05:29→23:16)
--- NOTE | 2018-06-20 06:50 | Orthopedics Progress Note ---
Date of Encounter: 06/20/18 Time of Encounter: 06:50 - Assessment and Plan (1) COPD, moderate Current Visit: No Status: Chronic (2) REMBERTO treated with BiPAP Current Visit: No Status: Chronic (3) Diastolic congestive heart failure Current Visit: No Status: Chronic Qualifiers: Heart failure chronicity: chronic Qualified Code(s): I50.32 - Chronic diastolic (congestive) heart failure (4) Hypertension Current Visit: No Status: Chronic Qualifiers: Hypertension type: unspecified Qualified Code(s): I10 - Essential (primary ) hypertension (5) Hyperlipidemia Current Visit: No Status: Chronic Qualifiers: Hyperlipidemia type: unspecified Qualified Code(s): E78.5 - Hyperlipidemia , unspecified (6) COPD (chronic obstructive pulmonary disease) Current Visit: No Status: Chronic Qualifiers: COPD type: unspecified COPD Qualified Code(s): J44.9 - Chronic obstructive pulmonary disease, unspecified (7) Smoking Current Visit: No Status: Chronic (8) Chronic pain Current Visit: No Status: Chronic Qualifiers: Chronic pain type: other chronic pain Qualified Code(s): G89.29 - Other chronic pain (9) Status post total left knee replacement Current Visit: No Status: Chronic (10) Arthritis of right knee Current Visit: Yes Status: Chronic (11) Status post total right knee replacement Current Visit: Yes Status: Acute (12) Morbid obesity with BMI of 60.0-69.9, adult Current Visit: Yes Status: Chronic Subjective Principal diagnosis: s/p R TKR Interval history: Patient was seen this morning doing well without complaints. Afebrile vital signs stable. Operative extremity: Neurovascularly intact Dressing clean dry and intact Calves nontender Assessment and plan: Continue with postoperative care Plan for discharge today Objective Vital signs: Vital Signs Temp Pulse Resp BP Pulse Ox 06/20/18 00:33 98.4 F 80 18 144/70 93 06/19/18 20:27 98.9 F 98 16 148/72 93 06/19/18 17:52 93 06/19/18 15:06 99.4 F 99 18 151/78 93 06/19/18 11:45 98.6 F 95 16 172/92 96 Intake and Output 06/19/18 06/19/18 06/20/18 15:59 23:59 07:59 Intake Total 480 / 480 290 / 290 Output Total 500 / 500 400 / 400 Balance 480 / 480 -210 / -210 -400 / -400 Intake: Oral 480 / 480 290 / 290 Output: Urine 500 / 500 400 / 400 Other: Meal Lunch Dinner Percent of Meal Consumed 100% 75% # Voids 1 - Labs CBC & BMP: 06/18/18 07:03 06/18/18 07:03 Labs: Abnormal lab results Hgb 10.7 g/dL (11.5-15.4) L 06/18/18 07:03 Hct 33.7 % (35.3-44.9) L 06/18/18 07:03 Glucose 136 mg/dL (70-105) H 06/18/18 07:03 - VTE Documentation of Mechanical Device: Venous foot pump, device Consult Discharge Plan - Plan Referrals: Mariam Kumar MD [Primary Care Provider] -
[2018-06-20] MEDS: Fluticasone/Vilanterol [Breo Ellipta 100-25 Mcg Inh IH SCH (07:54)
[2018-06-20] MEDS: Furosemide 40 MG TABLET PO SCH (07:54)
[2018-06-20] MEDS: Cholecalciferol (D-3) 1,000 UNIT TABLET PO SCH (08:01)
[2018-06-20] MEDS: Multivit/Ca/Min/Fe/FA 1 TAB TABLET PO SCH (08:01)
[2018-06-21] MEDS: *HR* Enoxaparin 30 MG/0.3 ML SYRINGE SQ SCH ×2 (06:06→18:34)
[2018-06-21] MEDS: Multivit/Ca/Min/Fe/FA 1 TAB TABLET PO SCH (07:42)
[2018-06-21] MEDS: *HR* OxyCODONE Immed Rel 5 MG TABLET PO PRN ×3 (07:42→18:35)
[2018-06-21] MEDS: Cholecalciferol (D-3) 1,000 UNIT TABLET PO SCH (07:42)
[2018-06-21] MEDS: Fluticasone/Vilanterol [Breo Ellipta 100-25 Mcg Inh IH SCH (07:45)
[2018-06-21] MEDS: Furosemide 40 MG TABLET PO SCH (07:45)
--- NOTE | 2018-06-21 08:06 | Orthopedics Progress Note ---
Date of Encounter: 06/21/18 Time of Encounter: 08:06 - Assessment and Plan (1) COPD, moderate Current Visit: No Status: Chronic (2) REMBERTO treated with BiPAP Current Visit: No Status: Chronic (3) Diastolic congestive heart failure Current Visit: No Status: Chronic Qualifiers: Heart failure chronicity: chronic Qualified Code(s): I50.32 - Chronic diastolic (congestive) heart failure (4) Hypertension Current Visit: No Status: Chronic Qualifiers: Hypertension type: unspecified Qualified Code(s): I10 - Essential (primary ) hypertension (5) Hyperlipidemia Current Visit: No Status: Chronic Qualifiers: Hyperlipidemia type: unspecified Qualified Code(s): E78.5 - Hyperlipidemia , unspecified (6) COPD (chronic obstructive pulmonary disease) Current Visit: No Status: Chronic Qualifiers: COPD type: unspecified COPD Qualified Code(s): J44.9 - Chronic obstructive pulmonary disease, unspecified (7) Smoking Current Visit: No Status: Chronic (8) Chronic pain Current Visit: No Status: Chronic Qualifiers: Chronic pain type: other chronic pain Qualified Code(s): G89.29 - Other chronic pain (9) Status post total left knee replacement Current Visit: No Status: Chronic (10) Arthritis of right knee Current Visit: Yes Status: Chronic (11) Status post total right knee replacement Current Visit: Yes Status: Acute (12) Morbid obesity with BMI of 60.0-69.9, adult Current Visit: Yes Status: Chronic Subjective Principal diagnosis: s/p R TKR Interval history: Patient was seen this morning doing well without complaints. Afebrile vital signs stable. Operative extremity: Neurovascularly intact Dressing clean dry and intact Calves nontender Assessment and plan: Continue with postoperative care Plan for discharge today discharge held yesterday secondary to placement issues Objective Vital signs: Vital Signs Temp Pulse Resp BP Pulse Ox 06/20/18 23:27 99.2 F 79 14 130/63 92 06/20/18 20:33 98.8 F 103 18 153/73 93 06/20/18 20:29 95 06/20/18 09:50 98.3 F 87 16 134/81 95 Intake and Output 06/20/18 06/21/18 06/21/18 23:59 07:59 15:59 Intake Total 240 / 240 Balance 240 / 240 Intake: Oral 240 / 240 Other: Meal Dinner Percent of Meal Consumed 70% Stool Size Moderate Stool Consistency formed Stool Characteristics Normal for Patient Stool Color Brown # Voids 1 1 # Bowel Movements 1 - Labs CBC & BMP: 06/18/18 07:03 06/18/18 07:03 Labs: Abnormal lab results Hgb 10.7 g/dL (11.5-15.4) L 06/18/18 07:03 Hct 33.7 % (35.3-44.9) L 06/18/18 07:03 Glucose 136 mg/dL (70-105) H 06/18/18 07:03 - VTE Documentation of Mechanical Device: Venous foot pump, device Consult Discharge Plan - Plan Referrals: Mariam Kumar MD [Primary Care Provider] -
[2018-06-22] MEDS: *HR* Enoxaparin 30 MG/0.3 ML SYRINGE SQ SCH ×2 (06:13→17:57)
[2018-06-22] MEDS: *HR* OxyCODONE Immed Rel 5 MG TABLET PO PRN ×4 (06:16→20:11)
--- NOTE | 2018-06-22 07:58 | Orthopedics Progress Note ---
Date of Encounter: 06/22/18 Time of Encounter: 07:58 - Assessment and Plan (1) COPD, moderate Current Visit: No Status: Chronic (2) REMBERTO treated with BiPAP Current Visit: No Status: Chronic (3) Diastolic congestive heart failure Current Visit: No Status: Chronic Qualifiers: Heart failure chronicity: chronic Qualified Code(s): I50.32 - Chronic diastolic (congestive) heart failure (4) Hypertension Current Visit: No Status: Chronic Qualifiers: Hypertension type: unspecified Qualified Code(s): I10 - Essential (primary ) hypertension (5) Hyperlipidemia Current Visit: No Status: Chronic Qualifiers: Hyperlipidemia type: unspecified Qualified Code(s): E78.5 - Hyperlipidemia , unspecified (6) COPD (chronic obstructive pulmonary disease) Current Visit: No Status: Chronic Qualifiers: COPD type: unspecified COPD Qualified Code(s): J44.9 - Chronic obstructive pulmonary disease, unspecified (7) Smoking Current Visit: No Status: Chronic (8) Chronic pain Current Visit: No Status: Chronic Qualifiers: Chronic pain type: other chronic pain Qualified Code(s): G89.29 - Other chronic pain (9) Status post total left knee replacement Current Visit: No Status: Chronic (10) Arthritis of right knee Current Visit: Yes Status: Chronic (11) Status post total right knee replacement Current Visit: Yes Status: Acute (12) Morbid obesity with BMI of 60.0-69.9, adult Current Visit: Yes Status: Chronic Subjective Principal diagnosis: s/p R TKR Interval history: Patient was seen this morning doing well without complaints. Afebrile vital signs stable. Operative extremity: Neurovascularly intact Dressing clean dry and intact Calves nontender Assessment and plan: Continue with postoperative care Plan for discharge today discharge held yesterday secondary to placement issues Objective Vital signs: Vital Signs Temp Pulse Resp BP Pulse Ox 06/22/18 06:48 98.9 F 87 16 148/78 96 06/22/18 02:11 99.3 F 84 18 141/84 95 06/21/18 20:21 99.6 F 84 18 112/45 94 06/21/18 14:08 98.3 F 78 16 124/83 98 06/21/18 10:34 98.5 F 81 16 129/78 96 Intake and Output 06/21/18 06/21/18 06/22/18 15:59 23:59 07:59 Intake Total 400 / 400 Output Total 750 / 750 Balance -350 / -350 Intake: Oral 400 / 400 Output: Urine 750 / 750 Other: Meal Lunch Percent of Meal Consumed 60% # Voids 1 - Labs CBC & BMP: 06/18/18 07:03 06/18/18 07:03 Labs: Abnormal lab results Hgb 10.7 g/dL (11.5-15.4) L 06/18/18 07:03 Hct 33.7 % (35.3-44.9) L 06/18/18 07:03 Glucose 136 mg/dL (70-105) H 06/18/18 07:03 - VTE Documentation of Mechanical Device: Venous foot pump, device Consult Discharge Plan - Plan Referrals: Mariam Kumar MD [Primary Care Provider] -
[2018-06-22] MEDS: Multivit/Ca/Min/Fe/FA 1 TAB TABLET PO SCH (08:55)
[2018-06-22] MEDS: Furosemide 40 MG TABLET PO SCH (08:55)
[2018-06-22] MEDS: Cholecalciferol (D-3) 1,000 UNIT TABLET PO SCH (08:55)
[2018-06-22 14:05] LABS: Hematocrit 33.3 % (35.3-44.9); Hemoglobin 10.6 g/dL (11.5-15.4)
[2018-06-22 14:27] LABS: BUN/Creatinine Ratio 17 (6-26); Blood Urea Nitrogen 11 mg/dL (6-20); Calcium 8.9 mg/dL (8.6-10.3); Carbon Dioxide 26 mEq/L (23-29); Chloride 106 mEq/L (98-107); Glucose 154 mg/dL (70-105); Osmolality,Calculated 292 (280-300); Potassium 3.7 mEq/L (3.5-5.1); Sodium 140 mEq/L (136-145); eGFR For Non-African Americans > 60 (> 60)
--- NOTE | 2018-06-22 17:15 | Event Note ---
Date of Encounter: 06/22/18 Time of Encounter: 17:13 PCR - POD#6 Vital Signs Temp Pulse Resp BP Pulse Ox 06/22/18 14:28 98.5 F 87 16 144/86 98 06/22/18 10:00 98.5 F 93 16 151/83 96 06/22/18 06:48 98.9 F 87 16 148/78 96 06/22/18 02:11 99.3 F 84 18 141/84 95 06/21/18 20:21 99.6 F 84 18 112/45 94 Intake and Output 06/22/18 06/22/18 06/22/18 07:59 15:59 23:59 Intake Total 360 / 360 Output Total 725 / 725 600 / 600 Balance -365 / -365 -600 / -600 Intake: Oral 360 / 360 Output: Urine 725 / 725 600 / 600 Other: Meal Lunch Percent of Meal Consumed 100% Patient seen at bedside, without complaints. A&O x 3 Afebrile, vital signs stable. Labs reviewed. H/H - stable, asymptomatic Pain control: adequate Participating in PT. All questions and concerns addressed. Educated on use of incentive spirometer. Encouraged ambulation and proper hydration. Patient educated on post-operative restrictions and post-operative care. Assessment and plan: Continue with postoperative care Discharge plan: today to [facility] if auth obtained, or tomorrow. Abnormal Labs 06/17/18 06/17/18 06/18/18 01:18 01:26 07:03 Hgb 11.3 L 10.7 L Hct 33.7 L Sodium 134 L Glucose 149 H Calculated Osmolality 279 L 06/18/18 06/22/18 06/22/18 07:03 13:46 13:46 Hgb 10.6 L Hct 33.3 L Sodium Glucose 136 H 154 H Calculated Osmolality
[2018-06-23] MEDS: *HR* Enoxaparin 30 MG/0.3 ML SYRINGE SQ SCH ×2 (06:26→16:51)
--- NOTE | 2018-06-23 06:51 | Orthopedics Progress Note ---
Date of Encounter: 06/23/18 Time of Encounter: 06:51 - Assessment and Plan (1) COPD, moderate Current Visit: No Status: Chronic (2) REMBERTO treated with BiPAP Current Visit: No Status: Chronic (3) Diastolic congestive heart failure Current Visit: No Status: Chronic Qualifiers: Heart failure chronicity: chronic Qualified Code(s): I50.32 - Chronic diastolic (congestive) heart failure (4) Hypertension Current Visit: No Status: Chronic Qualifiers: Hypertension type: unspecified Qualified Code(s): I10 - Essential (primary ) hypertension (5) Hyperlipidemia Current Visit: No Status: Chronic Qualifiers: Hyperlipidemia type: unspecified Qualified Code(s): E78.5 - Hyperlipidemia , unspecified (6) COPD (chronic obstructive pulmonary disease) Current Visit: No Status: Chronic Qualifiers: COPD type: unspecified COPD Qualified Code(s): J44.9 - Chronic obstructive pulmonary disease, unspecified (7) Smoking Current Visit: No Status: Chronic (8) Chronic pain Current Visit: No Status: Chronic Qualifiers: Chronic pain type: other chronic pain Qualified Code(s): G89.29 - Other chronic pain (9) Status post total left knee replacement Current Visit: No Status: Chronic (10) Arthritis of right knee Current Visit: Yes Status: Chronic (11) Status post total right knee replacement Current Visit: Yes Status: Acute (12) Morbid obesity with BMI of 60.0-69.9, adult Current Visit: Yes Status: Chronic Subjective Principal diagnosis: s/p R TKR Interval history: Patient was seen this morning doing well without complaints. Afebrile vital signs stable. Operative extremity: Neurovascularly intact Dressing clean dry and intact Calves nontender Assessment and plan: Continue with postoperative care Plan for discharge today discharge held yesterday secondary to placement issues Objective Vital signs: Vital Signs Temp Pulse Resp BP Pulse Ox 06/23/18 06:38 98.3 F 81 16 135/69 94 06/22/18 23:35 98.5 F 85 22 145/85 94 06/22/18 18:48 99.1 F 95 19 116/71 91 06/22/18 14:28 98.5 F 87 16 144/86 98 06/22/18 10:00 98.5 F 93 16 151/83 96 Intake and Output 06/22/18 06/22/18 06/23/18 15:59 23:59 07:59 Intake Total 360 / 360 240 / 240 Output Total 725 / 725 600 / 600 500 / 500 Balance -365 / -365 -360 / -360 -500 / -500 Intake: Oral 360 / 360 240 / 240 Output: Urine 725 / 725 600 / 600 500 / 500 Other: Meal Lunch Dinner Percent of Meal Consumed 100% 100% - Labs CBC & BMP: 06/22/18 13:46 06/22/18 13:46 Labs: Abnormal lab results Hgb 10.6 g/dL (11.5-15.4) L 06/22/18 13:46 Hct 33.3 % (35.3-44.9) L 06/22/18 13:46 Glucose 154 mg/dL (70-105) H 06/22/18 13:46 - VTE Documentation of Mechanical Device: Venous foot pump, device Consult Discharge Plan - Plan Referrals: Mariam Kumar MD [Primary Care Provider] -
[2018-06-23] MEDS: Furosemide 40 MG TABLET PO SCH (09:37)
[2018-06-23] MEDS: Multivit/Ca/Min/Fe/FA 1 TAB TABLET PO SCH (09:37)
[2018-06-23] MEDS: Cholecalciferol (D-3) 1,000 UNIT TABLET PO SCH (09:37)
[2018-06-23 16:09] VITALS: BP 147/81
[2018-06-23] MEDS: *HR* OxyCODONE Immed Rel 5 MG TABLET PO PRN (16:51)
== END 2018-06-23 17:40 | DRG 302 ==
LOC: SAMDAY 10:44 → 3NENU 15:42
PROVIDERS: ADMIT Orthopaedic Surgery; ATTEND Orthopaedic Surgery